=== PATIENT | male | born 1950 | race Hispanic/Latino ===

== ENCOUNTER 2017-02-26 10:45 | Emergency (ER) | payer BC ==
[2017-02-26 11:02] VITALS: BMI 29.1
[2017-02-26 11:03] VITALS: BP 160/84; PULSE 99; RESP 16; TEMP 98.4; O2SAT 94
--- NOTE | 2017-02-26 11:29 | ED PDOC ---
Arrival/HPI - General Chief Complaint: Lower Extremity Problem/Injury Time Seen by Provider: 02/26/17 11:26 Historian: Patient - History of Present Illness Narrative History of Present Illness (Text): 02/26/17 11:35 Mihai Oviedo is a 66 year old male, with a history of diabetes, presents to the emergency department complaining of blister to right heel since yesterday. Denies any trauma or pain to the area but notes that he had previously picked at the skin because there were calluses there. He denies pain, redness, or discharge and states he did not wish to come to the ER but was convinced to by his family. He does not see a interventional physiatrist. Patient also complains of tingling sensation to right upper extremity digits 1-3 for past 3 days. He states he had a similar symptom only in his 4th and 5th digit in the past. States that his blood glucose level is monitored and controlled typically in 130s. Denies fever , chills, headache, dizziness, chest pain, difficulty breathing, or any other complaints at this time. PMD Hany Gallegos. Time/Duration: Other (yesterday ) Activities at Onset: Light Context: Home Past Medical History - Infectious Disease Hx of Infectious Diseases: None - Tetanus Immunization Tetanus Immunization: Unknown - Past Medical History Past Medical History: Unable to Obtain - Cardiac Hx Cardiac Disorders: No Hx Angina: No Hx Cardiac Arrhythmia: No Hx Circulatory Problems: No Hx Congestive Heart Failure: No Hx Heart Murmur: No Hx Heart Transplant: No Hx Hypertension: No Hx Internal Defibrillator: No Hx Mitral Valve Prolapse: No Hx Pacemaker: No Hx Peripheral Vascular Disease: No - Pulmonary Hx Respiratory Disorders: No Hx Asthma: No Hx Bronchitis: No Hx Chronic Obstructive Pulmonary Disease (COPD): No Hx Emphysema: No Hx Pneumonia: No Hx Respiratory Aspiration: No Hx Respiratory Tract Infection: No Hx Sleep Apnea: No Hx Tuberculosis: No - Neurological Hx Neurological Disorder: No Hx Alzheimer's Disease: No HX Cerebrovascular Accident: No Hx Dementia: No Hx Dizziness: No Hx Meningitis: No Hx Migraine: No Hx Parkinson's Disease: No Hx Seizures: No Hx Transient Ischemic Attacks (TIA): No - HEENT Hx HEENT Disorder: No Hx Blind: No Hx Cataracts: No Hx Deafness: No Hx Difficulty Chewing: No Hx Epistaxis: No Hx Glaucoma: No Hx Macular Degeneration: No - Renal Hx Renal Disorder: No Hx Dialysis: No Hx Kidney Stones: No Hx Neurogenic Bladder: No Hx Pyelonephritis: No Hx Renal Cancer: No Hx Renal Failure: No - Endocrine/Metabolic Hx Endocrine Disorders: Yes Hx Adrenal Cancer: No Hx Diabetes Insipidus: No Hx Diabetes Mellitus Type 1: No Hx Diabetes Mellitus Type 2: Yes Hx Hyperthyroidism: No Hx Hypothyroidism: No Hx Systemic Lupus Erythematosus: No - Hematological/Oncological Hx Blood Disorders: No Hx Blood Transfusions: No - Integumentary Hx Dermatological Disorder: No Hx Basal Cell Carcinoma: No Hx Eczema: No Hx Melanoma: No Hx Psoriasis: No Hx Squamous Cell Carcinoma: No - Musculoskeletal/Rheumatological Hx Musculoskeletal Disorders: Yes Hx Arthritis: No Hx Back Pain: Yes Hx Degenerative Joint Disease: No Hx Falls: Yes (slipped on ice 2011) Hx Fractures: No Hx Gout: No Hx Herniated Disk: No Hx Myasthenia Gravis: No Hx Osteoarthritis: No Hx Osteomyelitis: No Hx Osteoporosis: No Hx Rhabdomyolysis: No Hx Spinal Stenosis: No Hx Unsteady Gait: No - Gastrointestinal Hx Gastrointestinal Disorders: Yes Hx Colostomy: No Hx Crohn's Disease: No Hx Diverticulitis: No Hx Gall Bladder Disease: No Hx Gastroesophageal Reflux: No Hx Ileostomy: No Hx Liver Failure: No Hx Pancreatitis: No HX Swallowing Problems: No Other/Comment: Ileus - Genitourinary/Gynecological Hx Genitourinary Disorders: No Hx Hematuria: No Hx Incontinence: No Hx Prostate Problems: No Hx Sexually Transmitted Diseases: No Hx Urinary Tract Infection: No - Psychiatric Hx Psychophysiologic Disorder: No Hx Anxiety: No Hx Bipolar Disorder: No Hx Depression: No Hx Emotional Abuse: No Hx Hallucinations: No Hx Panic Disorder: No Hx Post Traumatic Stress Disorder: No Hx Psychosis: No Hx Physical Abuse: No Hx Schizophrenia: No Hx Sexual Abuse: No Hx Substance Use: No - Past Surgical History Past Surgical History: Unable to Obtain - Surgical History Hx Amputation: No Hx Appendectomy: No Hx Cardiac Catheterization: No Hx Cholecystectomy: No Hx Coronary Stent: No Hx Gastric Bypass Surgery: No Hx Hysterectomy: No Hx Joint Replacement: No Hx Kidney Transplant: No Hx Liver Transplant: No Hx Mastectomy: No Hx Musculoskeletal Surgery: No Hx Open Heart Surgery: No Hx Orthopedic Surgery: No Hx Splenectomy: No Hx Valve Replacement: No Other/Comment: left shoulder arthoscopic sx repair axillary newve 1989, colonoscopy and egs 6 months ago, sx for entrapped nerve to elbow fold b/l arms , 2015 rib sx - Anesthesia Hx Anesthesia Reactions: No Hx Malignant Hyperthermia: No - Suicidal Assessment Feels Threatened In Home Enviroment: No Family/Social History Family/Social History: No Known Family HX Smoking Status: Never Smoked Hx Alcohol Use: No Hx Substance Use: No Hx Substance Use Treatment: No Allergies/Home Meds Allergies/Adverse Reactions: Allergies No Known Allergies Allergy (Verified 02/26/17 11:02) Home Medications: Home Meds Medication Instructions Recorded Confirmed Glyburide,Micronized [Glyburide 0 mg PO DAILY 12/04/15 02/26/17 Micronized] Sitagliptin Phos/Metformin HCl 1 tab PO BID 12/04/15 02/26/17 [Janumet 50-500 mg Tablet] Pioglitazone [Actos] 0 mg PO DAILY 01/25/16 02/26/17 Review of Systems - Physician Review All systems were reviewed & negative as marked: Yes - Review of Systems Constitutional: Normal. absent: Fatigue, Fevers Cardiovascular: Normal. absent: Chest Pain, Palpitations Gastrointestinal: Normal. absent: Abdominal Pain, Diarrhea, Nausea, Vomiting Genitourinary Male: Normal. absent: Dysuria, Frequency Musculoskeletal: Other (blister to heel of right foot. ) Psychiatric: Normal Physical Exam - Physical Exam Narrative Physical Exam (Text): Constitutional: No acute distress. Head: Normocephalic. Atraumatic. Eyes: PERRL. ENT: Moist mucous membranes. Neck: Supple. Cardiovascular: Regular rate. Chest: No tenderness. Respiratory: Clear to auscultation bilaterally. GI: Soft. Nontender. Nondistended. Back: No CVA tenderness. Musculoskeletal: No tenderness or swelling of extremities. Skin: No rash. Neurologic: Alert, no focal deficit. Vital Signs Reviewed: Yes Vital Signs Temp Pulse Resp BP Pulse Ox 02/26/17 11:02 98.4 F 99 H 16 160/84 H 94 L Temperature: Afebrile Blood Pressure: Hypertensive Pulse: Tachycardic Respiratory Rate: Normal Appearance: Positive for: Well-Appearing, Non-Toxic, Comfortable Pain Distress: None Mental Status: Positive for: Alert and Oriented X 3 Medical Decision Making ED Course and Treatment: 02/26/17 11:40 Impression: A 66 year old male who presents to the emergency department complaining of blister to heel of right foot. Progress Notes: Patient is stable for discharge. Denies any pain to area. Advised to follow up with interventional physiatrist and PMD within few days. Advised to present to emergency department for new or worsening symptoms. As there is no infection currently, will forego antibiotics but given instructions to watch for infectious symptoms. Also advised not to pop blister currently but if it does pop, instructions given on care. I encouraged the patient to pursue regular podiatric care given his history of diabetes and neuropathy. Patient states that he will be able to find follow up care through his PMD. - Scribe Statement The provider has reviewed the documentation as recorded by the Horace Peck Provider Attestation: All medical record entries made by the Aaronibe were at my direction and personally dictated by me. I have reviewed the chart and agree that the record accurately reflects my personal performance of the history, physical exam, medical decision making, and the department course for this patient. I have also personally directed, reviewed, and agree with the discharge instructions and disposition. Disposition/Present on Arrival - Present on Arrival Any Indicators Present on Arrival: No History of DVT/PE: No History of Uncontrolled Diabetes: No Urinary Catheter: No History of Decub. Ulcer: No History Surgical Site Infection Following: None - Disposition Have Diagnosis and Disposition been Completed?: Yes Diagnosis: Blister of foot, Neuropathy Disposition: HOME/ ROUTINE Disposition Time: 11:28 Patient Plan: Discharge Condition: STABLE Discharge Instructions (ExitCare): Blister (ED) Referrals: Ranjit Gallegos MD [Primary Care Provider] - Follow up with primary Escobar Gallo DPM [Staff Provider] - Follow up with primary
== END 2017-02-26 11:38 | disposition home or self-care (01) ==
LOC: ED 10:45
DX: S90.821A Blister (nonthermal), right foot, initial encounter (principal); X58.XXXA Exposure to other specified factors, initial encounter; Y92.009 Unspecified place in unspecified non-institutional (private) residence as the place of occurrence of the external cause; G62.9 Polyneuropathy, unspecified; E11.9 Type 2 diabetes mellitus without complications

== ENCOUNTER 2017-03-14 04:43 | Emergency (ER) | payer BC ==
[2017-03-14 04:44] VITALS: BMI 29.1
[2017-03-14 04:54] VITALS: BP 131/65; PULSE 88; RESP 17; TEMP 98.3; O2SAT 99
--- NOTE | 2017-03-14 05:15 | ED PDOC ---
Arrival/HPI - General Chief Complaint: Upper Extremity Problem/Injury Time Seen by Provider: 03/14/17 04:56 - History of Present Illness Narrative History of Present Illness (Text): 03/14/17 05:12 Patient is a 66 y/o M with hx of DM, presenting with 1 week history of R sided arm pain. He is reports R 1st-3rd digit numbness and tingling that radiates up into his R elbow. He cannot identify anything that triggered the pain. He denies new recent repetitive movements. He reports that the shooting pain is constant. Denies trauma. Chart review shows that patient has hx of neuropathic pain and was seen in ED on 02/26/17 for similar wrist complaints but has not followed up. Past Medical History - Infectious Disease Hx of Infectious Diseases: None - Tetanus Immunization Tetanus Immunization: Unknown - Past Medical History Past Medical History: Unable to Obtain - Cardiac Hx Cardiac Disorders: No - Pulmonary Hx Respiratory Disorders: No - Neurological Hx Neurological Disorder: No - HEENT Hx HEENT Disorder: No - Renal Hx Renal Disorder: No - Endocrine/Metabolic Hx Endocrine Disorders: Yes Hx Diabetes Mellitus Type 2: Yes - Hematological/Oncological Hx Blood Disorders: No - Integumentary Hx Dermatological Disorder: No - Musculoskeletal/Rheumatological Hx Musculoskeletal Disorders: Yes Hx Back Pain: Yes Hx Falls: Yes (slipped on ice 2011) - Gastrointestinal Hx Gastrointestinal Disorders: Yes Other/Comment: Ileus - Genitourinary/Gynecological Hx Genitourinary Disorders: No - Psychiatric Hx Psychophysiologic Disorder: No Hx Substance Use: No - Past Surgical History Past Surgical History: Unable to Obtain - Surgical History Other/Comment: left shoulder arthoscopic sx repair axillary newve 1989, colonoscopy and egs 6 months ago, sx for entrapped nerve to elbow fold b/l arms , 2015 rib sx - Anesthesia Hx Anesthesia Reactions: No Hx Malignant Hyperthermia: No - Suicidal Assessment Feels Threatened In Home Enviroment: No Family/Social History Family/Social History: No Known Family HX Smoking Status: Never Smoked Hx Alcohol Use: No Hx Substance Use: No Hx Substance Use Treatment: No Allergies/Home Meds Allergies/Adverse Reactions: Allergies No Known Allergies Allergy (Verified 02/26/17 11:02) Home Medications: Home Meds Medication Instructions Recorded Confirmed Pregabalin [Lyrica] 03/14/17 glyBURIDE [Glyburide] 03/14/17 Review of Systems - Review of Systems Constitutional: absent: Fatigue, Weight Change, Fevers Eyes: absent: Vision Changes Respiratory: absent: SOB, Cough, Sputum, Wheezing Cardiovascular: absent: Chest Pain Gastrointestinal: absent: Abdominal Pain Musculoskeletal: Arthralgias. absent: Neck Pain Skin: absent: Rash Neurological: absent: Headache, Dizziness, Focal Weakness Physical Exam Vital Signs Temp Pulse Resp BP Pulse Ox 03/14/17 04:53 98.3 F 88 17 131/65 99 Temperature: Afebrile Blood Pressure: Normal Pulse: Regular Respiratory Rate: Normal Appearance: Positive for: Well-Appearing, Non-Toxic, Comfortable Pain Distress: None Mental Status: Positive for: Alert and Oriented X 3 - Systems Exam Head: Present: Atraumatic, Normocephalic Pupils: Present: PERRL Extroacular Muscles: Present: EOMI Conjunctiva: Present: Normal Mouth: Present: Moist Mucous Membranes Neck: Present: Normal Range of Motion Respiratory/Chest: Present: Clear to Auscultation, Good Air Exchange. No: Respiratory Distress, Accessory Muscle Use Cardiovascular: Present: Regular Rate and Rhythm, Normal S1, S2. No: Murmurs Abdomen: No: Tenderness, Distention, Rebound, Guarding Upper Extremity: Present: Normal ROM, NORMAL PULSES, Neurovascularly Intact, Other (+Phalen's test). No: Tenderness, Swelling, Erythema Medical Decision Making ED Course and Treatment: 03/14/17 05:15 Presentation seems consistent with carpal tunnel vs diabetic nerve pain. No indication for imaging. Given wrist splint and antiinflammatory medication. Instructed to follow-up with PMD. - Medication Orders Current Medication Orders: Discontinued Medications Ibuprofen (Motrin Tab) 600 mg PO STAT STA Stop: 03/14/17 05:07 Last Admin: 03/14/17 05:22 Dose: 600 mg Ibuprofen (Motrin Tab) Confirm Administered Dose 600 mg .ROUTE .STK-MED ONE Stop: 03/14/17 05:14 Last Admin: 03/14/17 05:21 Dose: Disposition/Present on Arrival - Present on Arrival Any Indicators Present on Arrival: No History of DVT/PE: No History of Uncontrolled Diabetes: No Urinary Catheter: No History of Decub. Ulcer: No History Surgical Site Infection Following: None - Disposition Have Diagnosis and Disposition been Completed?: Yes Diagnosis: Carpal tunnel syndrome of right wrist Disposition: HOME/ ROUTINE Disposition Time: 05:19 Patient Plan: Discharge Condition: GOOD Discharge Instructions (ExitCare): Carpal Tunnel Syndrome (ED), Paresthesia (ED ) Additional Instructions: Follow up with your PMD within 2 days for further evaluation of your wrist pain concerning for diabetic nerve pain vs carpal tunnel. Wear wrist brace. Take anti-inflammatory medication such as motrin. Return to ED if condition worsens. Prescriptions: Naproxen 500 mg PO BID PRN #20 tab PRN Reason: Pain, Mild (1-3)
== END 2017-03-14 05:32 | disposition home or self-care (01) ==
LOC: ED 04:43
DX: G56.01 Carpal tunnel syndrome, right upper limb (principal)

== ENCOUNTER 2017-05-04 09:45 | Inpatient (IN) | payer BC, MEDICARE ==
[2017-05-04 10:31] LABS: VENOUS BLOOD GAS PO2 32 mm/Hg (30-55); VENOUS BLOOD PH 7.37 (7.32-7.43)
[2017-05-04 10:36] LABS: BASO # 0.01 K/mm3 (0.0-2.0); BASO % 0.1 % (0.0-3.0); EOS # 0.2 (0.0-0.7); EOS % 1.5 % (1.5-5.0); GRAN # 8.59 (1.4-6.5); GRAN % 70.3 % (50.0-68.0); HEMOGLOBIN 12.6 gm/dL (14.0-18.0); LYMPH # 2.5 (1.2-3.4); LYMPH % 20.6 % (22.0-35.0); MEAN CELL VOLUME 85.2 fL (80.0-105.0); MEAN CORPUSCULAR HGB CONC 35.2 g/dl (31.0-37.0); MONO # 0.9 (0.1-0.6); MONO % 7.5 % (1.0-6.0); PLATELET COUNT 175 10^3/uL (120.0-450.0); RED CELL DISTRIBUTION WIDTH 14.5 % (11.5-14.5); WHITE BLOOD COUNT 12.2 10^3/ul (4.5-11.0)
[2017-05-04 10:42] LABS: ALB/GLOB RATIO 1.4 (1.1-1.8); ALBUMIN 4.1 g/dL (3.0-4.8); ALT/SGPT 86 U/L (7-56); AST/SGOT 411 U/L (15-59); BLOOD UREA NITROGEN 28 mg/dL (7-21); CALCIUM 9.1 mg/dL (8.4-10.5); GFR AFRICAN-AMERICAN > 60; GFR NON-AFRICAN AMERICAN 55
[2017-05-04 10:43] LABS: INR 1.06 (0.93-1.08); PARTIAL THROMBOPLASTIN TIME 33.3 Seconds (23.7-30.8); PROTHROMBIN TIME 11.4 Seconds (9.9-11.8)
[2017-05-04] MEDS: Sodium Chloride 0.9% 1,000 ML IV SCH (10:49)
[2017-05-04 10:52] LABS: TROPONIN I < 0.01 ng/mL
--- NOTE | 2017-05-04 11:00 | CT ---
PROCEDURE: CT HEAD WITHOUT CONTRAST. HISTORY: ams COMPARISON: None available. TECHNIQUE: Axial computed tomography images were obtained through the head/brain without intravenous contrast. Radiation dose: Total exam DLP = 01/17/2017 mGy-cm. This CT exam was performed using one or more of the following dose reduction techniques: Automated exposure control, adjustment of the mA and/or kV according to patient size, and/or use of iterative reconstruction technique. FINDINGS: HEMORRHAGE: No intracranial hemorrhage. BRAIN: No mass effect or edema. Minimal diffuse atrophy consistent with age. No evidence of acute infarct. VENTRICLES: Unremarkable. No hydrocephalus. CALVARIUM: Unremarkable. PARANASAL SINUSES: Unremarkable as visualized. No significant inflammatory changes. MASTOID AIR CELLS: Unremarkable as visualized. No inflammatory changes. OTHER FINDINGS: None. IMPRESSION: No intracranial mass, hemorrhage or evidence of acute infarct.
[2017-05-04] MEDS ORDERED: cefTRIAXone 1 gm 100 ML IVPB STA (11:11)
[2017-05-04] MEDS ORDERED: cefTRIAXone 1 gm 1 GM/100 ML BAG IVPB STA (11:16)
--- NOTE | 2017-05-04 11:31 | RAD ---
HISTORY: weakness COMPARISON: 05/13/2016 FINDINGS: LUNGS: No infiltrate. Minimal linear scar/atelectasis lateral left lung base. PLEURA: No significant pleural effusion identified, no pneumothorax apparent. CARDIOVASCULAR: Normal. OSSEOUS STRUCTURES: No significant abnormalities. VISUALIZED UPPER ABDOMEN: Normal. OTHER FINDINGS: None. IMPRESSION: No active disease.
[2017-05-04] MEDS ORDERED: Sodium Chloride 0.9% 1,000 ML IV STA (11:44)
[2017-05-04 11:51] LABS: CK MB% 0.3 % (2.5-3.0); CK-MB 54.4 ng/mL (0.0-3.6)
--- NOTE | 2017-05-04 12:23 | CT ---
PROCEDURE: CT Abdomen and Pelvis without intravenous contrast HISTORY: buttock cellulitis ? abscess COMPARISON: 05/13/2016 TECHNIQUE: Without contrast.. Contrast Dose: 0 Radiation dose: Total exam DLP = 1195.17 mGy-cm. This CT exam was performed using one or more of the following dose reduction techniques: Automated exposure control, adjustment of the mA and/or kV according to patient size, and/or use of iterative reconstruction technique. FINDINGS: LOWER THORAX: Bilateral gynecomastia. Coronary arterial calcification. LIVER: Unremarkable. No gross lesion or ductal dilatation. GALLBLADDER AND BILE DUCTS: Unremarkable. PANCREAS: Unremarkable. No gross lesion or ductal dilatation. SPLEEN: Unremarkable. ADRENALS: Unremarkable. No mass. KIDNEYS AND URETERS: Unremarkable. No hydronephrosis. No solid mass. VASCULATURE: Unremarkable. No aortic aneurysm. BOWEL: Diverticulosis of the descending and sigmoid colon. No evidence of diverticulitis. No bowel obstruction. No other abnormal bowel loops are identified. APPENDIX: Unremarkable. Normal appendix. PERITONEUM: Unremarkable. No free fluid. No free air. LYMPH NODES: Unremarkable. No enlarged lymph nodes. BLADDER: Unremarkable. REPRODUCTIVE: Unremarkable prostate BONES: No acute fracture. OTHER FINDINGS: There is stranding of the subcutaneous fat in the left gluteal region with mild overlying skin thickening. Findings are consistent with cellulitis. No evidence of abscess. No abnormality of the gluteal musculature. IMPRESSION: Findings consistent with left gluteal cellulitis. No evidence of abscess. Additional minor findings as above.
--- NOTE | 2017-05-04 13:27 | CP.PCM.CON ---
History of Present Illness - History of Present Illness History of Present Illness: General Surgery Consult- Dr. Azevedo 67M with history of multiple falls presents to the ED with increasing pain around left gluteus. Pt has been having pain for 3 days and has been getting progressively worse. Pt claims he fell forward. No BM in 4 days, but has noticed blood from abrasions. Denies F/C, NOVAK/CP/SOB, N/V/D. no BPR ALL: NKDA PMH: Diabetes Mellitus PSH: multiple orthopaedic surgeries. b/L UE nerve entrapment releases SocialHx: EtOH Review of Systems - Review of Systems All systems: reviewed and no additional remarkable complaints except Review of Systems: per HPI Past Patient History - Infectious Disease Hx of Infectious Diseases: None - Tetanus Immunizations Tetanus Immunization: Unknown - Past Medical History & Family History Past Medical History?: Yes - Past Social History Smoking Status: Never Smoked - CARDIAC Hx Cardiac Disorders: No - PULMONARY Hx Respiratory Disorders: No - NEUROLOGICAL Hx Neurological Disorder: No - HEENT Hx HEENT Problems: No - RENAL Hx Chronic Kidney Disease: No - ENDOCRINE/METABOLIC Hx Endocrine Disorders: Yes Hx Diabetes Mellitus Type 2: Yes - HEMATOLOGICAL/ONCOLOGICAL Hx Blood Disorders: No - INTEGUMENTARY Hx Dermatological Problems: No - MUSCULOSKELETAL/RHEUMATOLOGICAL Hx Musculoskeletal Disorders: Yes Hx Back Pain: Yes Hx Falls: Yes (slipped on ice 2011) - GASTROINTESTINAL Hx Gastrointestinal Disorders: Yes Other/Comment: Ileus - GENITOURINARY/GYNECOLOGICAL Hx Genitourinary Disorders: No - PSYCHIATRIC Hx Psychophysiologic Disorder: No Hx Substance Use: No - SURGICAL HISTORY Other/Comment: left shoulder arthoscopic sx repair axillary newve 1989, colonoscopy and egs 6 months ago, sx for entrapped nerve to elbow fold b/l arms , 2015 rib sx - ANESTHESIA Hx Anesthesia: Yes Hx Anesthesia Reactions: No Hx Malignant Hyperthermia: No Meds Allergies/Adverse Reactions: Allergies Allergy/AdvReac Type Severity Reaction Status Date / Time No Known Allergies Allergy Verified 02/26/17 11:02 - Medications Medications: Current Medications Glycerin (Glycerin Adult Suppository) 1 sup RC ONCE ONE Stop: 05/04/17 13:11 Sodium Chloride (Sodium Chloride 0.9%) 1,000 mls @ 100 mls/hr IV .Q10H DEEPAK Last Admin: 05/04/17 10:49 Dose: 100 mls/hr Potassium Chloride (Potassium Chloride 10 Meq/100 Ml) 10 meq in 100 mls @ 100 mls/hr IVPB Q2H DEEPAK Stop: 05/04/17 14:14 Last Admin: 05/04/17 12:16 Dose: 100 mls/hr Physical Exam - Constitutional Appears: No Acute Distress - Eye Exam Eye Exam: EOMI Pupil Exam: PERRL - ENT Exam ENT Exam: Mucous Membranes Moist - Neck Exam Neck exam: Positive for: Normal Inspection - Respiratory Exam Respiratory Exam: Clear to Auscultation Bilateral, NORMAL BREATHING PATTERN. absent: Accessory Muscle Use, Rales, Wheezes, Stridor - Cardiovascular Exam Cardiovascular Exam: REGULAR RHYTHM, +S1, +S2 - GI/Abdominal Exam GI & Abdominal Exam: Distended, Normal Bowel Sounds, Soft. absent: Hernia - Rectal Exam Rectal Exam: Fecal Impaction. absent: Hemorrhoids Additional comments: Left glut ecchymosis with abrasions extending from outer edge towards the anus not involving the anus towards the right glut. Non-fluctuant. Indurated - Back Exam Additional comments: abrasions in lumbar region - Neurological Exam Neurological exam: Alert, Altered, Oriented x3 - Psychiatric Exam Psychiatric exam: Flat Affect - Skin Additional comments: Abrasion lower lumbar breaking skin. Induration on left glut not involving the anus. dark ecchymosis non-fluctuant and warm to touch Results - Labs Result Diagrams: 05/04/17 16:45 05/04/17 22:10 Assessment & Plan - Assessment and Plan (Free Text) Assessment: 67M s/p fall, left gluteal pain, cellulitis vs abscess Plan: - f/u CT scan results - Abx - medical management - suppository to help initiate BM - No surgical intervention at this time d/w Dr. Roberto Carlos Gibbons PGY1 - Date & Time Date: 05/04/17 Time: 12:45
[2017-05-04 14:24] VITALS: BMI 31.4
[2017-05-04 14:48] LABS: URINE BILIRUBIN NEGATIVE (NEGATIVE); URINE BLOOD LARGE (NEGATIVE); URINE GLUCOSE (UA) NEGATIVE (NEGATIVE); URINE LEUKOCYTE ESTERASE NEGATIVE Leu/uL (NEGATIVE); URINE NITRATE NEGATIVE (NEGATIVE); URINE PROTEIN TRACE mg/dL (<30 mg/dL); URINE UROBILINOGEN 0.2 E.U./dL (<1 E.U./dL)
[2017-05-04 14:54] LABS: URINE AMORPHOUS SEDIMENT SMALL; URINE APPEARANCE SL CLOUDY (CLEAR); URINE COLOR YELLOW (YELLOW); URINE EPITHELIAL CELLS 0 - 2 /hpf (0-5); URINE WBC 0 - 2 /hpf (0-6)
[2017-05-04] MEDS: Meropenem 1g/NS 100mL IVPB 1 GM/100 ML PIGGYBACK IVPB SCH ×2 (15:19→21:24)
--- NOTE | 2017-05-04 15:21 | ED PDOC ---
Arrival/HPI - General Chief Complaint: Weakness/Neurological Deficit Time Seen by Provider: 05/04/17 09:48 Historian: Patient, Spouse, EMS - History of Present Illness Narrative History of Present Illness (Text): 05/04/17 15:17 Patient is a 67 yo male past medical history of "traumatic brain injury", history of hemopneumothorax, history of back pain, presents to ED complaining of pain to his lower back/buttocks for over a week, also states for 1-2 weeks he has had intermittent pain to his fingers in both hands, on and off. Patient states that he has fallen "a few times" over the past several weeks. Reportedly son reported to EMS that he had fallen several days ago "onto his knees" and has possibly has had other falls recently as well. Patient reports fatigue and not ambulating well for several days. He denies headache, he denies chest pain or shortness of breath. Denies bloody urine or stool. Reports that he has had no abdominal pain, no vomiting or diarrhea. Patient states that he has not taken any pain medication for "7-8 days". Time/Duration: Prior to Arrival, 1 week Past Medical History - Infectious Disease Hx of Infectious Diseases: None - Tetanus Immunization Tetanus Immunization: Unknown - Past Medical History Past Medical History: Unable to Obtain - Cardiac Hx Cardiac Disorders: No - Pulmonary Hx Respiratory Disorders: No - Neurological Hx Neurological Disorder: No (TBI from fall in 2011) - HEENT Hx HEENT Disorder: No - Renal Hx Renal Disorder: No - Endocrine/Metabolic Hx Endocrine Disorders: Yes Hx Diabetes Mellitus Type 2: Yes - Hematological/Oncological Hx Blood Disorders: No - Integumentary Hx Dermatological Disorder: No - Musculoskeletal/Rheumatological Hx Falls: Yes (slipped on ice 2011) - Gastrointestinal Hx Gastrointestinal Disorders: Yes Other/Comment: Ileus - Genitourinary/Gynecological Hx Genitourinary Disorders: No - Psychiatric Hx Psychophysiologic Disorder: No Hx Substance Use: No - Past Surgical History Past Surgical History: Unable to Obtain - Surgical History Other/Comment: left shoulder arthoscopic sx repair axillary newve 1989, colonoscopy and egs 6 months ago, sx for entrapped nerve to elbow fold b/l arms , 2015 rib sx - Anesthesia Hx Anesthesia: Yes Hx Anesthesia Reactions: No Hx Malignant Hyperthermia: No - Suicidal Assessment Feels Threatened In Home Enviroment: No Family/Social History Family/Social History: Unknown Family HX Smoking Status: Never Smoked Hx Alcohol Use: No Hx Substance Use: No Hx Substance Use Treatment: No Allergies/Home Meds Allergies/Adverse Reactions: Allergies No Known Allergies Allergy (Verified 02/26/17 11:02) Home Medications: Home Meds Medication Instructions Recorded Confirmed Pregabalin [Lyrica] 03/14/17 glyBURIDE [Glyburide] 1 tab PO DAILY 03/14/17 05/04/17 Review of Systems - Review of Systems Systems not reviewed;Unavailable: Altered Mental Status Constitutional: Fatigue Eyes: absent: Vision Changes, Eye Pain ENT: absent: Hearing Changes Respiratory: absent: SOB, Cough Cardiovascular: Edema. absent: Chest Pain, GIRON Gastrointestinal: Appetite Changes. absent: Abdominal Pain, Stool Changes, Diarrhea, Nausea, Hematochezia, Hematemesis Genitourinary Male: Urinary Output Changes. absent: Dysuria, Frequency, Hematuria Musculoskeletal: Arthralgias, Back Pain, Myalgias. absent: Neck Pain Skin: Skin Lesions. absent: Rash Neurological: Gait Changes. absent: Headache, Dizziness, Speech Changes Endocrine: absent: Diaphoresis, Polydipsia Hemo/Lymphatic: absent: Easy Bleeding Psychiatric: absent: Suicidal Ideation Physical Exam Vital Signs Reviewed: Yes Vital Signs Temp Pulse Resp BP Pulse Ox 05/04/17 15:15 98.5 F 85 13 130/62 96 05/04/17 14:59 82 18 127/65 98 05/04/17 14:19 88 18 132/70 05/04/17 13:25 88 18 132/70 98 05/04/17 09:49 98.2 F 89 18 114/60 98 Temperature: Afebrile Appearance: Positive for: Ill-Appearing Mental Status: Positive for: Lethargic Finger Stick Blood Glucose: 166 - Systems Exam Head: Present: Atraumatic, Normocephalic Pupils: Present: PERRL Extroacular Muscles: Present: EOMI Ears: Present: Normal Canal. No: Erythema Mouth: Present: Dry. No: Drooling, Trismus Pharnyx: No: ERYTHEMA, EXUDATE Nose (Internal): Present: Normal Inspection. No: Purulent Mucous Neck: Present: Normal Range of Motion, Paraspinal Tenderness. No: Meningeal Signs, MIDLINE TENDERNESS, JVD Respiratory/Chest: Present: Clear to Auscultation. No: Respiratory Distress, Accessory Muscle Use Cardiovascular: Present: Regular Rate and Rhythm, Murmurs Abdomen: Present: Distention. No: Tenderness, Peritoneal Signs Rectal: Present: Normal Rectal Tone. No: Gross Blood, Melena, Hemorrhoids Back: Present: Other (there is ecchymosis and erythema with skin breakdwon to bilateral buttocks extending to gluteal fold, no foreign body, no fluctuant masses noted, NO MIDLINE TENDERENSS OR DEFORMITY NOTED) Upper Extremity: No: Cyanosis, Edema Lower Extremity: Present: NORMAL PULSES, Other (abrasions to bilateral knee, full range of motion of hip knee and ankle, mlid leg edema noted). No: Edema Neurological: Present: GCS=15, CN II-XII Intact. No: Speech Normal (slurred speech, slow to respond), Memory Normal Skin: Present: Pale, Other (erythema as noted to buttock) Psychiatric: Present: Alert. No: Normal Concentration, Normal Affect Medical Decision Making ED Course and Treatment: 05/04/17 15:37 Patient's prior records and history reviewed. History subsequently supplemented by who presented to ED after patient's arrival. Patient has had pain to his hands bilaterally on and off for several weeks. On initial exam he does not have midline neck pain or recent trauma. Distal pulses strong. He is noted to be lethargic on initial evaluation, sleeping but arousable with verbal stimuli, where he will answer questions appropriately but in mid response stop speaking and then start speaking again. He states he has "not taken any of my medications for 7 days". States he does take Morphine for pain but has not had pain medication for a week. was out of town but states that when she returned 3 days ago the patient was very sleepy and lethargic, and notes that currently he "this is better than at home". Patient reportedly has been "laying in bed without getting up" for "days" and "isn't eating very much". She suspect that the patient has been falling multiple times and reported to her son that he fell on Friday and "hit his knees" and "told our son he hit his head". Patient states he has to support himself with walking and might have fallen onto his back at some point. Back exam reveals ecchymosis with soft tissue swelling and erythema to buttocks , no discrete abscess noted, no midline bony pain noted. Neuro exam and strength in lower extremities appears intact. Patient was initiated on IV hydration. CPK extremely elevated, suggestive of component of skin breakdown, rhabdomyolysis. Mondragon catheter recommended to measure urine output, patient at this time requests no mondragon, indications and risks reviewed with patient. ID consulted and iv antibitoics initiated for possible buttock cellulitis. Patient's lethargy reportedly has been intermittent as per family. I suspect possible medication side effect or overusage, although patient states he has not been taking any meds for several days. CT head unremarkable, on re-exam he is more alert and interactive. Afebrile. No meningeal signs. No respiratory distress. Hypokalemia noted, no arrhythmias noted. IV kcl ordered and patient monitored. Dr. Irma Gallegos at bedside, and back evaluated by surgery consult Dr. Azevedo. Patient to be admitted to ICU to monitor hydration status, manage rhabdomyolysis , monitor neurologic status, monitor back and arm pain. Currently NV intact, I discussed treatment plan with patient and in length. Patient accepted to ICU by Dr. Steiner, securities compliance examiner. - Lab Interpretations Lab Results: 05/04/17 10:25 05/04/17 10:25 Lab Results 05/04/17 10:25: Sodium 131 L, Chloride 91 L, Potassium 2.7 L* D, Carbon Dioxide 29, Anion Gap 14, BUN 28 H, Creatinine 1.3, Est GFR ( Amer) > 60, Est GFR (Non-Af Amer) 55, Random Glucose 114 H, Calcium 9.1, Total Bilirubin 2.2 H, AST 411 H, ALT 86 H, Alkaline Phosphatase 87, Lactate Dehydrogenase 1037 H, Total Creatine Kinase 23956 H, CK-MB (CK-2) 54.4 H, CK-MB (CK-2) % 0.3 L, Troponin I < 0.01, Total Protein 6.9, Albumin 4.1, Globulin 2.9, Albumin/ Globulin Ratio 1.4 05/04/17 10:25: pO2 32, VBG pH 7.37, VBG pCO2 55.0, VBG HCO3 31.8 H, VBG Total CO2 33.5 H, VBG O2 Sat (Calc) 70.3 H, VBG Base Excess 5.0 H, VBG Potassium 3.0 L , Sodium 131.0 L, Chloride 94.0 L, Glucose 117 H, Lactate 2.0, FiO2 21.0, Venous Blood Potassium 3.0 L 05/04/17 10:25: PT 11.4, INR 1.06, APTT 33.3 H 05/04/17 10:25: WBC 12.2 H, RBC 4.20, Hgb 12.6 L, Hct 35.8 L, MCV 85.2, MCH 30.0 , MCHC 35.2, RDW 14.5, Plt Count 175, MPV 11.0, Gran % 70.3 H, Lymph % (Auto) 20.6 L, Bremer % (Auto) 7.5 H, Eos % (Auto) 1.5, Baso % (Auto) 0.1, Gran # 8.59 H , Lymph # 2.5, Bremer # 0.9 H, Eos # 0.2, Baso # 0.01 - RAD Interpretation Radiology Orders: 05/04/17 10:05 CHEST PORTABLE [RAD] Stat 05/04/17 10:09 HEAD W/O CONTRAST [CT] Stat 05/04/17 11:12 ABD & PELVIS W/O PO OR IV CONT [CT] Stat - EKG Interpretation EKG Interpretation (Text): 05/04/17 15:46 EKG at 09:56 normal sinus rhythm rate of 92 with left axis deviation, nonspecific st changes Interpreted by ED Physician: Yes Type: 12 lead EKG - Medication Orders Current Medication Orders: Sodium Chloride (Sodium Chloride 0.9%) 1,000 mls @ 100 mls/hr IV .Q10H DEEPAK Last Admin: 05/04/17 10:49 Dose: 100 mls/hr Meropenem 1g/NS 100mL IVPB (Meropenem 1g/Ns 100ml Ivpb) 1 gm in 100 mls @ 100 mls/hr IVPB Q8 DEEPAK PRN Reason: Protocol Stop: 05/14/17 14:01 Linezolid (Zyvox) 600 mg PO BID DEEPAK PRN Reason: Protocol Stop: 05/13/17 18:01 Discontinued Medications Glycerin (Glycerin Adult Suppository) 1 sup RC ONCE ONE Stop: 05/04/17 13:11 Last Admin: 05/04/17 13:46 Dose: 1 sup Potassium Chloride (Potassium Chloride 10 Meq/100 Ml) 10 meq in 100 mls @ 100 mls/hr IVPB Q2H DEEPAK Stop: 05/04/17 14:14 Last Admin: 05/04/17 13:45 Dose: 100 mls/hr Ceftriaxone Sodium (Rocephin 1 Gram Ivpb) 1 gm in 100 mls @ 200 mls/hr IVPB ONCE STA PRN Reason: Protocol Stop: 05/04/17 11:45 Last Admin: 05/04/17 11:42 Dose: 200 mls/hr Sodium Chloride (Sodium Chloride 0.9%) 1,000 mls @ 1,000 mls/hr IV .Q1H STA Stop: 05/04/17 12:43 Last Admin: 05/04/17 13:46 Dose: 1,000 mls/hr Disposition/Present on Arrival - Present on Arrival Any Indicators Present on Arrival: Yes History of DVT/PE: No History of Uncontrolled Diabetes: Yes Urinary Catheter: No History of Decub. Ulcer: No History Surgical Site Infection Following: None - Disposition Have Diagnosis and Disposition been Completed?: Yes Diagnosis: Altered mental status, Frequent falls, Cellulitis of buttock, Dehydration, Rhabdomyolysis, Knee abrasion, Hypokalemia, Back pain, Hand pain Disposition: HOSPITALIZED Disposition Time: 12:00 Patient Plan: Admission, ICU Patient Problems: Current Active Problems Problem Status Onset Altered mental status Acute Cellulitis of buttock Acute Dehydration Acute Frequent falls Acute Hypokalemia Acute Knee abrasion Acute Rhabdomyolysis Acute Condition: SERIOUS
[2017-05-04 17:10] LABS: BASO # 0.01 K/mm3 (0.0-2.0); BASO % 0.1 % (0.0-3.0); EOS # 0.3 (0.0-0.7); EOS % 2.7 % (1.5-5.0); GRAN # 6.25 (1.4-6.5); GRAN % 66.9 % (50.0-68.0); HEMOGLOBIN 10.9 gm/dL (14.0-18.0); LYMPH # 2.2 (1.2-3.4); LYMPH % 23.3 % (22.0-35.0); MEAN CELL VOLUME 84.3 fL (80.0-105.0); MEAN CORPUSCULAR HEMOGLOBIN 29.9 pg (25.0-35.0); MEAN CORPUSCULAR HGB CONC 35.5 g/dl (31.0-37.0); MEAN PLATELET VOLUME 10.9 fl (7.0-11.0); MONO # 0.7 (0.1-0.6); PLATELET COUNT 137 10^3/uL (120.0-450.0); RBC 3.64 10^6/uL (3.5-6.1); RED CELL DISTRIBUTION WIDTH 14.3 % (11.5-14.5); VENOUS BLOOD GAS BASE EXCESS 4.8 mmol/L (0.0-2.0); VENOUS BLOOD GAS PO2 54 mm/Hg (30-55); VENOUS BLOOD PH 7.43 (7.32-7.43); WHITE BLOOD COUNT 9.3 10^3/ul (4.5-11.0)
[2017-05-04 17:30] LABS: ALB/GLOB RATIO 1.4 (1.1-1.8); ALBUMIN 3.2 g/dL (3.0-4.8); ALT/SGPT 89 U/L (7-56); AST/SGOT 364 U/L (15-59); BLOOD UREA NITROGEN 20 mg/dL (7-21); GFR AFRICAN-AMERICAN > 60; GFR NON-AFRICAN AMERICAN > 60
[2017-05-04] MEDS ORDERED: Potassium Chloride 20 mEq ER Tab PO ONE (17:49)
[2017-05-04] MEDS ORDERED: Potassium Chloride 20 mEq ER Tab PO STA (18:09)
[2017-05-04 18:15] LABS: MAGNESIUM 1.9 mg/dL (1.7-2.2)
--- NOTE | 2017-05-04 19:31 | CON ---
DATE: 05/04/2017 [employer] PRINCIPAL CONSULTING PHYSICIAN: Dr. Gallegos. CHIEF COMPLAINT: The patient presents with history of fall and stated that he did fall in today and noticed to be lethargic. HISTORY OF PRESENT ILLNESS: The patient is a 67-year-old male with history of traumatic brain injury secondary to fall sometime in the past. The patient also has chronic back pain, arm pain and neck pain as well as abdominal pain. He presents to the ER with history of falling today and states that he has had increasing pain around his left gluteal area. This has been for the last 3 days that he has been getting progressively worse. The patient has no complaints of shortness of breath, no cough, no chest congestion, no fever, chills or nausea or vomiting. Does have some abdominal pain, but no diarrhea. It is noted that the lethargy is there. When left alone he will easily go to sleep and when arose he is appropriate, oriented x3. CT of the head is negative. It is noted that he does have dehydration and his CPK is elevated to 18,000. The patient is also noted to have hypokalemia. PAST MEDICAL HISTORY: As above. ALLERGIES: He has no known allergies. CURRENT MEDICATION: Can be evaluated as per the nurse intake form. SOCIAL HISTORY: Positive for *------* use, no smoking, no drug abuse. FAMILY HISTORY: Noncontributory. REVIEW OF SYSTEMS: CONSTITUTIONAL: All negative. HEENT: All negative. RESPIRATORY: All negative. CARDIOVASCULAR: All negative. GASTROINTESTINAL: All negative. : All negative. MUSCULOSKELETAL: The patient has chronic pain. NEUROPSYCHIATRIC: He has frequent falls. HEMATOLOGICAL: All negative. IMMUNOLOGIC: All negative. ENDOCRINE: All negative. INTEGRITY: The patient noted to have cellulitis of the gluteal area. PHYSICAL EXAMINATION GENERAL: Note that his temperature was 98.5, his pulse is 82, respirations are 12, and BP is 130/62. O2 saturation is 96% on room air. HEENT: Head is atraumatic and normocephalic. Eyes, reactive to light. Ears, nose, and throat seemed to be within normal limits. NECK: Supple. No JVD. No thyroid enlargement. No lymph nodes. HEART: Has regular rate, and rhythm. Normal S1 and S2. LUNGS: Revealed good breath sounds bilaterally. ABDOMEN: Soft. Mild tenderness to palpation. Good bowel sounds. GENITALIA AND RECTAL: Deferred. MUSCULOSKELETAL: No joint deformities. EXTREMITIES: Reveal trace lower extremity. NEUROLOGIC: The patient is moving all extremities, but is fairly lethargic when left alone, but oriented x3. LABORATORY DATA: Reveals a white count of 12.2, hemoglobin of 12.6, hematocrit 35.8 with platelets of 175,000. Venous blood gas reveals a PH of 7.37, PCO2 of 55, PO2 of 32. Sodium is 131, potassium 2.7, chloride 91, CO2 of 29 with a BUN of 28, creatinine of 1.3 and glucose of 131. The patient's CPK is 18,368 and CK-MB is elevated as well. As far as the patient's chest x-ray revels that there is some left-sided atelectasis and has seen CT of the abdomen reveals that there is left gluteal cellulitis and CT of the head reveals no intracranial mass, hemorrhage or evidence of acute infarct. IMPRESSION: This patient has rhabdomyolitis and has gluteal cellulitis. He has some mild dehydration and small amount of atelectasis in the left lung region. The patient has chronic back pain, arm and neck pain secondary to a history of frequent falls. He also has a past history of traumatic brain injury secondary to fall. PLAN: We will continue normal saline and IV, the patient is getting antibiotic of Rocephin and meropenem and we will monitor closely. We are repeating his CPK as well as potassium and the patient potassium has been corrected as per the ER. The patient will be monitoring closely and we will continue to treat aggressively along with the other education consultant of infectious disease, neuro and surgical. Casey Steiner MD
--- NOTE | 2017-05-04 20:45 | CON ---
DATE: 05/04/2017 The patient was seen in the ICU 129, bed 2. The patient actually was initially in the emergency room with the patient's at the bedside. CHIEF COMPLAINT: Buttocks pain and erythema and infection from several days. HISTORY OF PRESENT ILLNESS: This is a 67-year-old male who is known to me from previous admission with history of diabetes mellitus and history of peptic ulcer disease, diverticulitis, and the patient had a fall with rib fracture, resulted in a hemothorax in the past, had a chest tube in, had arthroscopy and endoscopy, had traumatic brain injury, and since his fall, his condition has continued to deteriorate. The patient's , who I spoke to in the emergency room, says the patient has been basically chair ridden and does not get off from the chair and has developed erythema and breakdown of the skin, and now is admitted with feeling weak, somewhat confused. No nausea. No abdominal pain, diarrhea, or constipation. No bright red blood per rectum. No melena. PAST MEDICAL HISTORY: Significant for diabetes mellitus, diverticulitis, herniated disk, peptic ulcer disease, traumatic brain injury, multiple falls in the past, hip fracture, and hemothorax. PAST SURGICAL HISTORY: Significant for chest tube placement and arthroscopy and endoscopy. ALLERGIES: THE PATIENT HAS NO KNOWN ALLERGIES. MEDICATIONS AT HOME: Includes the patient to be on glyburide, Lyrica and naproxen. PHYSICAL EXAMINATION: GENERAL: The patient is in bed and somewhat confused; however, he answers questions appropriately, but slowly, and at times, not accurately as per the patient's . VITAL SIGNS: Temperature is 98.5, heart rate of 89, respiratory rate of 19, it was up 42. The patient's oxygen saturation is 93% and the blood pressure is 114/60. HEENT: Unremarkable. NECK: Supple. LUNGS: Decreased breath sounds. HEART: Normal S1 and S2. ABDOMEN: Soft, nontender. No rebound, no guarding, no mass. EXTREMITIES: Examination of the buttocks reveals severe bilateral erythema with central necrotic area or rectal area, but not involving the rectum. The erythema is more so on the left, however, it is significant erythema and infection. LABORATORY EXAMINATION: Reveals a white count of 12,200, hemoglobin of 12, platelets of 175, and 70% granulocytosis, 20% lymphocytosis. Coagulation noted. Blood gases noted. Chemistries reveal a BUN of 28, creatinine of 1.3; when asked creatinine before this, the patient had a creatinine of 0.9 on 05/15/2016 as documented. The patient does have a potassium of 2.7, glucose of 114, AST of 411, ALT of 86, LDH is over 1000 with a CK of over 18,000. Urinalysis reveals the patient has trace protein, large blood in the urine, 0-2 wbc's, no leukocyte esterase, and there is cloudy *------* pH of 6.0. The patient also had a CAT scan of the abdomen and pelvis, which reveals the patient to have a cellulitis. No evidence of abscess. CAT scan of the head is also done, which reveals the patient to have no acute changes, no evidence of hemorrhage. The patient had a chest x-ray, which is negative. EKG is not available. ASSESSMENT AND PLAN: This is a 67-year-old male *------* with history of multiple falls, history of traumatic brain injury, history of hemothorax requiring a chest tube, history of diverticulitis, peptic ulcer disease, presenting now with leukocytosis and weakness and somewhat confused with dyspnea and significant erythema of the buttocks in the central necrotic area with severe sepsis with left gluteal cellulitis of the buttocks with a necrotic central area with leukocytosis, rhabdomyolysis, and acute kidney injury, creatinine has changed from 0.9 to 1.3. We will start the patient on Zyvox and meropenem pending panculture results, surgical evaluation and clinical response. We will follow closely with you. Long-term prognosis is quite poor for this patient. Case discussed with Dr. Ranjit Gallegos and the patient's at length. We will follow closely. Pollo Woo MD
[2017-05-04 22:33] LABS: BLOOD UREA NITROGEN 17 mg/dL (7-21); GFR AFRICAN-AMERICAN > 60; GFR NON-AFRICAN AMERICAN > 60
--- NOTE | 2017-05-04 22:40 | CARD ---
APPROVED REPORT EKG Measurement Heart [id number] <Conclusion> Poor data quality, interpretation may be adversely affected Normal sinus rhythm Left axis deviation Abnormal ECG
[2017-05-04 22:56] LABS: CK MB% 0.2 % (2.5-3.0)
[2017-05-05] MEDS: Sodium Chloride 0.9% 1,000 ML IV SCH ×3 (04:00→17:07)
[2017-05-05] MEDS ORDERED: Potassium Chloride 20 mEq ER Tab PO ONE (04:04)
[2017-05-05] MEDS: Meropenem 1g/NS 100mL IVPB 1 GM/100 ML PIGGYBACK IVPB SCH ×3 (05:40→21:23)
--- NOTE | 2017-05-05 06:11 | CP.PCM.PN ---
<ThorGiofabian - Last Filed: 05/05/17 12:19> Subjective - Date & Time of Evaluation Date of Evaluation: 05/05/17 Time of Evaluation: 06:08 - Subjective Subjective: Patient differs in whether or not to place Goff. Request Dr. Azevedo's presence. Nurse reports K got low overnight. Objective - Vital Signs/Intake and Output Vital Signs (last 24 hours): Temp Pulse Resp BP Pulse Ox 98 F 77 11 L 108/62 95 05/05/17 04:00 05/05/17 04:40 05/05/17 04:40 05/05/17 04:10 05/05/17 04:40 Intake and Output: 05/04/17 05/05/17 18:59 06:59 Intake Total 2250 Output Total 450 Balance 1800 - Medications Medications: Current Medications Sodium Chloride (Sodium Chloride 0.9%) 1,000 mls @ 100 mls/hr IV .Q10H [facility] Last Admin: 05/05/17 04:00 Dose: 100 mls/hr Meropenem 1g/NS 100mL IVPB (Meropenem 1g/Ns 100ml Ivpb) 1 gm in 100 mls @ 100 mls/hr IVPB Q8 DEEPAK PRN Reason: Protocol Stop: 05/14/17 14:01 Last Admin: 05/05/17 05:40 Dose: 100 mls/hr Potassium Chloride (Potassium Chloride 10 Meq/100 Ml) 10 meq in 100 mls @ 100 mls/hr IVPB Q2H DEEPAK Stop: 05/05/17 07:14 Linezolid (Zyvox) 600 mg PO BID DEEPAK PRN Reason: Protocol Stop: 05/13/17 18:01 Last Admin: 05/04/17 17:03 Dose: 600 mg - Labs Labs: 05/04/17 16:45 05/04/17 22:10 PT 11.4 Seconds (9.9-11.8) 05/04/17 10:25 INR 1.06 (0.93-1.08) 05/04/17 10:25 APTT 33.3 Seconds (23.7-30.8) H 05/04/17 10:25 - Constitutional Appears: Older Than Stated Age, Confused - Head Exam Head Exam: ATRAUMATIC, NORMOCEPHALIC - Eye Exam Eye Exam: Normal appearance - ENT Exam ENT Exam: Mucous Membranes Moist - Respiratory Exam Respiratory Exam: Decreased Breath Sounds, NORMAL BREATHING PATTERN. absent: Accessory Muscle Use - Cardiovascular Exam Cardiovascular Exam: RRR, +S1, +S2 - GI/Abdominal Exam GI & Abdominal Exam: Soft, Hyperactive Bowel Sounds - Rectal Exam Additional comments: Perirectal cellulitis with necrosis/eschar - Neurological Exam Neurological Exam: Abnormal Gait, Awake - Psychiatric Exam Psychiatric exam: Normal Affect, Normal Mood Assessment and Plan - Assessment and Plan (Free Text) Assessment: 67 yo male with recent falls admitted to the ICU for sepsis, rhabdomyolysis, perirectal cellulitis, and some confusion. Plan: Neurologic: CT head showed no acute processes. UDS not collected. Lethargic at the moment, not completely lucid. Pulmonary: CXR showed no acute processes. CV: EKG showed NSR with no significant ST elevation or depression, or T wave inversions. MAP> 65. GI: CT A/P showed no acute intra-abdominal processes, but did show finding consistent with a left gluteal cellulitis, without radiologic evidence of gangrenous necrosis. Renal: For Rhabdomyolysis 2L of IVF administered in ER followed by 100 mls/hr, continue IVF. Monitor UO to ensure at least more than 0.5 ml/kg/hr is produced. Total CK trending down, will continue to monitor. HUONG has resolved with fluids. Repleting K and monitoring other electrolytes via BMP. Serum Magnesium was normal after a prophylactic dose of 1 gm IV. ID: Cellulitis vs gangrenous (gas) necrosis of perirectal region. 1 gram of Ceftriaxone IV administered in ER, now on day 2 of Meropenem and day 1 of Linezolid. Will continue to monitor WBC, fevers.and remain in Surgery: Dr. Azevedo and the surgical team is following patient. I believe they consider conservative treatment for the perirectal region at thuis time. <Antonio Nieves - Last Filed: 05/05/17 18:04> Objective - Vital Signs/Intake and Output Vital Signs (last 24 hours): Temp Pulse Resp BP Pulse Ox 97.5 F L 91 H 19 119/40 L 97 05/05/17 16:00 05/05/17 16:00 05/05/17 16:00 05/05/17 16:00 05/05/17 16:00 Intake and Output: 05/05/17 05/05/17 06:59 18:59 Intake Total 2120 3100 Output Total 600 1000 Balance 1520 2100 - Medications Medications: Current Medications Hydromorphone HCl (Dilaudid) 0.5 mg IVP Q4H PRN PRN Reason: pain more then 6 out of 10 Last Admin: 05/05/17 17:06 Dose: 0.5 mg Meropenem 1g/NS 100mL IVPB (Meropenem 1g/Ns 100ml Ivpb) 1 gm in 100 mls @ 100 mls/hr IVPB Q8 DEEPAK PRN Reason: Protocol Stop: 05/14/17 14:01 Last Admin: 05/05/17 13:03 Dose: 100 mls/hr Sodium Chloride (Sodium Chloride 0.9%) 1,000 mls @ 200 mls/hr IV .Q5H DEEPAK Last Admin: 05/05/17 17:07 Dose: 200 mls/hr Insulin Human Regular (Humulin R Med) 0 units SC ACHS DEEPAK PRN Reason: Protocol Last Admin: 05/05/17 16:54 Dose: Not Given Linezolid (Zyvox) 600 mg PO BID DEEPAK PRN Reason: Protocol Stop: 05/13/17 18:01 Last Admin: 05/05/17 17:06 Dose: 600 mg - Labs Labs: 05/04/17 16:45 05/05/17 05:35 PT 11.4 Seconds (9.9-11.8) 05/04/17 10:25 INR 1.06 (0.93-1.08) 05/04/17 10:25 APTT 33.3 Seconds (23.7-30.8) H 05/04/17 10:25 Attending/Attestation - Attestation I have personally seen and examined this patient.: Yes I have fully participated in the care of the patient.: Yes I have reviewed all pertinent clinical information, including history, physical exam and plan: Yes Notes (Text): 05/05/17 18:02 67 yo male with perirectal cellulitis. On broad spectrum abx, fluid resuscitated. No OR as per surgical service, just wound care. Hemodynamically and respiratory raygoza stable ccm time 40 min
[2017-05-05 07:46] LABS: ALB/GLOB RATIO 1.2 (1.1-1.8); ALT/SGPT 80 U/L (7-56); AST/SGOT 287 U/L (15-59); BLOOD UREA NITROGEN 12 mg/dL (7-21); CALCIUM 7.9 mg/dL (8.4-10.5); GFR AFRICAN-AMERICAN > 60; GFR NON-AFRICAN AMERICAN > 60
[2017-05-05] MEDS: HYDROmorphone 0.5 mg/0.5 ml ISec IVP PRN ×3 (07:47→17:06)
--- NOTE | 2017-05-05 08:42 | CP.PCM.PCO ---
Physician Communication Note - Physician Communication Note Physician Communication Note: Maintain NPO for Possible OR debridement later today
[2017-05-05 09:52] LABS: CK MB% 0.1 % (2.5-3.0); CK-MB 13.4 ng/mL (0.0-3.6)
--- NOTE | 2017-05-05 10:46 | CP.PCM.PN ---
Subjective - Date & Time of Evaluation Date of Evaluation: 05/05/17 Time of Evaluation: 10:00 - Subjective Subjective: Comfortable, not in distress, less pain in the gluteal area, no fevers overnight. Objective - Vital Signs/Intake and Output Vital Signs (last 24 hours): Temp Pulse Resp BP Pulse Ox 97.9 F 85 10 L 100/43 L 97 05/05/17 08:00 05/05/17 09:50 05/05/17 09:50 05/05/17 09:00 05/05/17 09:50 Intake and Output: 05/05/17 05/05/17 06:59 18:59 Intake Total 2120 Output Total 600 Balance 1520 - Medications Medications: Current Medications Hydromorphone HCl (Dilaudid) 0.5 mg IVP Q4H PRN PRN Reason: pain more then 6 out of 10 Last Admin: 05/05/17 07:47 Dose: 0.5 mg Meropenem 1g/NS 100mL IVPB (Meropenem 1g/Ns 100ml Ivpb) 1 gm in 100 mls @ 100 mls/hr IVPB Q8 DEEPAK PRN Reason: Protocol Stop: 05/14/17 14:01 Last Admin: 05/05/17 05:40 Dose: 100 mls/hr Potassium Chloride (Potassium Chloride 20 Meq/100 Ml) 20 meq in 100 mls @ 50 mls/hr IVPB Q2H DEEPAK Stop: 05/05/17 11:44 Last Admin: 05/05/17 09:35 Dose: 50 mls/hr Sodium Chloride (Sodium Chloride 0.9%) 1,000 mls @ 200 mls/hr IV .Q5H [facility] Last Admin: 05/05/17 08:21 Dose: 200 mls/hr Linezolid (Zyvox) 600 mg PO BID DEEPAK PRN Reason: Protocol Stop: 05/13/17 18:01 Last Admin: 05/05/17 09:37 Dose: 600 mg - Labs Labs: 05/04/17 16:45 05/05/17 05:35 PT 11.4 Seconds (9.9-11.8) 05/04/17 10:25 INR 1.06 (0.93-1.08) 05/04/17 10:25 APTT 33.3 Seconds (23.7-30.8) H 05/04/17 10:25 - Constitutional Appears: Non-toxic, No Acute Distress - Head Exam Head Exam: NORMAL INSPECTION - Respiratory Exam Respiratory Exam: Decreased Breath Sounds - Cardiovascular Exam Cardiovascular Exam: +S1, +S2 - GI/Abdominal Exam GI & Abdominal Exam: Soft. absent: Tenderness Assessment and Plan - Assessment and Plan (Free Text) Plan: Assessment Severe sepsis with acute renal failure (improving) with associated rhabdomyolysis in a patient with left gluteal skin and skin structure infection with necrotic central area DM history of diverticulitis S/P hemothorax S/P chest tube placement peptic ulcer disease history of traumatic brain injury history of hip fracture Plan Continue Zyvox and Merrem (day 2) pending further plans of surgery for debridement of the wound on the gluteal area will monitor clinically rhoabmyolysis is still being treated in the ICU
--- NOTE | 2017-05-05 12:58 | PN ---
DATE: 05/05/2017 SUBJECTIVE: The patient is seen and examined at bedside. He is comfortable. He talks full sentences. He is not in respiratory or otherwise distress. However, complains arm pain 5-6/10. PHYSICAL EXAMINATION: VITAL SIGNS: Heart rate 84, respiratory rate 10-15, oxygen saturation 98% on room air, blood pressure 101/37. ENT, HEAD AND NECK: Atraumatic. LUNGS: Clear to auscultation bilaterally. HEART: Regular rate and rhythm. S1 and S2 are normal. ABDOMEN: Soft, nontender and nondistended. MUSCULOSKELETAL: No C/C/E. NEUROLOGIC: The patient moves all extremities spontaneously. SKIN: Moist. PSYCHIATRIC: The patient is alert and oriented x3. LABORATORY DATA: WBC 9.3, hemoglobin 10.9, platelet count 137. Sodium 134, potassium 3.3, chloride 99, carbon dioxide 28, BUN 12, creatinine 0.8, glucose 99. AST 287 down from 364, total bilirubin 1.4 down from 1.8, ALT 80 down from 89. CPK is 13,060 down from 18,000. MEDICATIONS: Dilaudid 0.5 mg IV q. 4 hours p.r.n., Zyvox 600 mg p.o. b.i.d., meropenem, potassium supplementation, normal saline at 200 mL per hour. ASSESSMENT AND PLAN: This is a 67-year-old gentleman who presented with perirectal abscess versus cellulitis. CAT scan, however, did not reveal any abscess or gas in the soft tissue. Patient, however, did have some rhabdomyolysis with CPK 18,000 and acute kidney injury. He was started on normal saline at 100 mL per hour and now increased to 200 mL per hour. Folic acid was replaced. CPK and urine output will be monitored closely. Patient is on broad-spectrum antibiotics. No need for OR as per Dr. Azevedo--> wound care. We will continue to target euvolemia, euglycemia, normothermia and oxygen saturation more than 90%. We will aim at urine output more than 0.5 mL/kg/hr. His pH based on yesterday's lab is 7.43, thus no need for bicarbonate drip at the present time. We will aggressively supplement electrolytes at the present time, potassium is 3.3. We will continue with deep venous thrombosis and gastrointestinal prophylaxis. ccm time 40 min Antonio Nieves MD MTDD
--- NOTE | 2017-05-05 16:21 | HP ---
ADMITTING HISTORY AND PHYSICAL: The patient is a 67-year-old male who presented to the [facility] after suffering multiple falls at home. As per the patient, his legs would simply give out. He denies any palpitations, dizziness, lightheadedness. The patient is known to have a past medical history positive for chronic low back pain. A few years ago he slipped on the ice and suffered multiple rib fractures which were complicated by hemothorax relieved surgically x2. 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 He also has noninsulin-dependent diabetes mellitus. He had been suffering memory loss since his rib fracture and hemothoraces. He was diagnosed with post traumatic brain injury by his neurologist, Dr. Ranjan Mars. When seen in the emergency room, he was accompanied by his . His mental status seems to be changed. He is difficult to follow a conversation, difficult to follow a specific train of thought. He complains of pain all over in his arms, his back, his legs. He is a nonsmoker, never smoked, nonalcoholic drinker. He has no known medical allergies. At the time of admission, he was known to be taking Lyrica, glyburide. He is also taking high doses of opioids in the form of oxycodone and MS Contin. REVIEW OF SYSTEMS: As mentioned above. PHYSICAL EXAMINATION: VITAL SIGNS: His blood pressure is 114/60. Heart rate is 89 beats per minute and he is afebrile. HEENT: Head, eyes, ears, nose, and throat are unremarkable. LUNGS: Clear to auscultation and percussion. HEART: Regular. ABDOMEN: Soft and nontender. EXTREMITIES: Free of cyanosis, clubbing, or edema. There are large areas of cellulitis with a central necrotic area on both buttocks. NEUROLOGICALLY: The patient is slow in thought, but there are no focal neurological signs. LABORATORY STUDIES: Show the white blood cell count to be slightly elevated at 12.3, hemoglobin and hematocrit 12.6 and 35.8 respectively. Platelet count is 175. Sodium is depressed at 131. Potassium is extremely low at 2.7. Blood urea nitrogen is 28, creatinine 1.3. Nonfasting glucose is 140. Total bilirubin is elevated at 2.2. AST is 411. ALT is 86. Total creatine kinase is 18,368. Troponins are negative at 0.01. CAT scan of the brain showed diffuse atrophy. Chest x-ray shows no acute disease. EKG shows regular sinus rhythm with left axis deviation. CAT scan of the abdomen shows cellulitis of left gluteal area. The patient is admitted with diagnoses of sepsis, cellulitis of the buttocks, hypokalemia. He is to be admitted to the intensive care unit. Dr. Woo is requested to consult for the sepsis. Dr. Tyrese Azevedo is requested to provide surgical consult for possible debridement of the necrotic areas on his buttocks. We will be supplementing the potassium. There does not seem to be any problems with rhabdomyolysis at this time; however, we will keep the patient well hydrated and follow his renal functions. Ranjit Gallegos MD
[2017-05-05] MEDS: Insulin Reg-MEDIUM-Coverage SC SCH ×2 (16:54→21:53)
[2017-05-05 19:17] LABS: CK MB% 0.1 % (2.5-3.0); CK-MB 7.6 ng/mL (0.0-3.6)
[2017-05-06] MEDS: Sodium Chloride 0.9% 1,000 ML IV SCH ×3 (03:35→20:00)
[2017-05-06] MEDS: Meropenem 1g/NS 100mL IVPB 1 GM/100 ML PIGGYBACK IVPB SCH ×3 (05:14→21:30)
[2017-05-06 06:47] LABS: BASO # 0.01 K/mm3 (0.0-2.0); BASO % 0.1 % (0.0-3.0); EOS # 0.2 (0.0-0.7); EOS % 2.3 % (1.5-5.0); GRAN # 4.61 (1.4-6.5); GRAN % 67.2 % (50.0-68.0); HEMOGLOBIN 11.4 gm/dL (14.0-18.0); LYMPH # 1.7 (1.2-3.4); LYMPH % 24.7 % (22.0-35.0); MEAN CORPUSCULAR HEMOGLOBIN 30.1 pg (25.0-35.0); MEAN PLATELET VOLUME 10.8 fl (7.0-11.0); MONO # 0.4 (0.1-0.6); MONO % 5.7 % (1.0-6.0); PLATELET COUNT 162 10^3/uL (120.0-450.0); RBC 3.79 10^6/uL (3.5-6.1); RED CELL DISTRIBUTION WIDTH 14.6 % (11.5-14.5); WHITE BLOOD COUNT 6.9 10^3/ul (4.5-11.0)
[2017-05-06 07:02] LABS: ALB/GLOB RATIO 1.3 (1.1-1.8); ALBUMIN 3.2 g/dL (3.0-4.8); ALT/SGPT 80 U/L (7-56); AST/SGOT 243 U/L (15-59); BLOOD UREA NITROGEN 7 mg/dL (7-21); CALCIUM 8.4 mg/dL (8.4-10.5); GFR AFRICAN-AMERICAN > 60; GFR NON-AFRICAN AMERICAN > 60
[2017-05-06 07:45] LABS: CK-MB 4.9 ng/mL (0.0-3.6)
[2017-05-06] MEDS: Insulin Reg-MEDIUM-Coverage SC SCH ×4 (07:58→21:36)
--- NOTE | 2017-05-06 08:25 | CP.PCM.PN ---
Subjective - Date & Time of Evaluation Date of Evaluation: 05/06/17 Time of Evaluation: 08:22 - Subjective Subjective: General Surgery - Dr. Azevedo Pt S&E. ASHLYN. PT denies any complaints, no discomfort in gluteal region at site of excoriations. No F/C, SOB/Cp. Objective - Vital Signs/Intake and Output Vital Signs (last 24 hours): Temp Pulse Resp BP Pulse Ox 98 F 76 17 136/76 98 05/06/17 04:00 05/06/17 06:00 05/06/17 06:00 05/06/17 06:00 05/06/17 06:00 Intake and Output: 05/06/17 05/06/17 06:59 18:59 Intake Total 4200 Output Total 1000 Balance 3200 - Medications Medications: Current Medications Hydromorphone HCl (Dilaudid) 0.5 mg IVP Q4H PRN PRN Reason: pain more then 6 out of 10 Last Admin: 05/05/17 17:06 Dose: 0.5 mg Meropenem 1g/NS 100mL IVPB (Meropenem 1g/Ns 100ml Ivpb) 1 gm in 100 mls @ 100 mls/hr IVPB Q8 DEEPAK PRN Reason: Protocol Stop: 05/14/17 14:01 Last Admin: 05/06/17 05:14 Dose: 100 mls/hr Sodium Chloride (Sodium Chloride 0.9%) 1,000 mls @ 200 mls/hr IV .Q5H DEEPAK Last Admin: 05/06/17 03:35 Dose: 200 mls/hr Insulin Human Regular (Humulin R Med) 0 units SC ACHS DEEPAK PRN Reason: Protocol Last Admin: 05/06/17 07:58 Dose: Not Given Linezolid (Zyvox) 600 mg PO BID DEEPAK PRN Reason: Protocol Stop: 05/13/17 18:01 Last Admin: 05/05/17 17:06 Dose: 600 mg Silver Sulfadiazine (Silvadene 1% 20 Gm) 1 ea TOP BID DEEPAK - Labs Labs: 05/06/17 06:10 05/06/17 06:10 PT 11.4 Seconds (9.9-11.8) 05/04/17 10:25 INR 1.06 (0.93-1.08) 07/23/17 10:25 APTT 33.3 Seconds (23.7-30.8) H 05/04/17 10:25 - Constitutional Appears: No Acute Distress - Head Exam Head Exam: ATRAUMATIC, NORMAL INSPECTION, NORMOCEPHALIC - Eye Exam Eye Exam: Normal appearance - Respiratory Exam Respiratory Exam: NORMAL BREATHING PATTERN. absent: Respiratory Distress - Rectal Exam Additional comments: Perirectal and Gluteal ecchymosis with some skin sloughing and surrounding erythema - Neurological Exam Neurological Exam: Alert, Oriented x3 - Psychiatric Exam Psychiatric exam: Normal Affect, Normal Mood - Skin Skin Exam: Dry, Intact Assessment and Plan - Assessment and Plan (Free Text) Assessment: 67M s/p fall w/ gluteal abrasion Plan: - Apply Silvadene BID to the affected region - No surgical intervention planned DW Dr Roberto Carlos Garcia PGY3
[2017-05-06] MEDS: HYDROmorphone 0.5 mg/0.5 ml ISec IVP PRN ×3 (10:02→18:19)
[2017-05-06] MEDS: Silver Sulfadiazine 1% Cream (20 gm) TOP SCH ×2 (10:03→17:17)
--- NOTE | 2017-05-06 14:32 | PN ---
DATE: 05/06/2017 SUBJECTIVE: The patient is in bed, in no acute distress, nontoxic, no fevers and no chills. PHYSICAL EXAMINATION: VITAL SIGNS: Temperature is 98, blood pressure is 130/70, respiratory rate of 18. HEENT: Unremarkable. NECK: Supple. LUNGS: Decreased breath sounds. HEART: Normal S1 and S2. ABDOMEN: Soft and nontender. LABORATORY EXAMINATION: Reveals white count of 6.9, hemoglobin of 11, platelets of 162. Chemistries reveal BUN of 7, creatinine of 0.8. CPK is noted and is improved. Urinalysis is noted. Microbiology reveals that the patient's blood cultures have no growth. Urine cultures have multiple species consistent with the contamination. Review of orders confirms the patient to be on meropenem and Zyvox and Dr. note is reviewed. ASSESSMENT AND PLAN: He is a 67-year-old male, admitted with severe sepsis, acute renal injury associated with rhabdomyolysis in the patient with left gluteal infection and cellulitis, central neck chronic area a patient who is diabetic, has history of diverticulitis, status post fall, had a hemothorax, had chest tube placement, peptic ulcer disease and had traumatic brain injury and hip fracture history. On day #3 of Zyvox and meropenem, appears to be improving slowly as far and we will follow closely with you. Case discussed with the team in taking care for the patient in the ICU staff. Pollo Woo MD
--- NOTE | 2017-05-06 14:38 | CP.PCM.PN ---
<Thor,Wilber - Last Filed: 05/06/17 14:34> Subjective - Date & Time of Evaluation Date of Evaluation: 05/06/17 Time of Evaluation: 07:15 - Subjective Subjective: Patient is more lucid than yestrday. Complains about room service. Otherwise, no events overnight. Objective - Vital Signs/Intake and Output Vital Signs (last 24 hours): Temp Pulse Resp BP Pulse Ox 98 F 79 14 155/69 H 99 05/06/17 04:00 05/06/17 13:00 05/06/17 13:00 05/06/17 07:00 05/06/17 13:00 Intake and Output: 05/06/17 05/06/17 06:59 18:59 Intake Total 4200 Output Total 1000 Balance 3200 - Medications Medications: Current Medications Hydromorphone HCl (Dilaudid) 0.5 mg IVP Q4H PRN PRN Reason: pain more then 6 out of 10 Last Admin: 05/06/17 10:02 Dose: 0.5 mg Meropenem 1g/NS 100mL IVPB (Meropenem 1g/Ns 100ml Ivpb) 1 gm in 100 mls @ 100 mls/hr IVPB Q8 DEEPAK PRN Reason: Protocol Stop: 05/14/17 14:01 Last Admin: 05/06/17 13:37 Dose: 100 mls/hr Sodium Chloride (Sodium Chloride 0.9%) 1,000 mls @ 200 mls/hr IV .Q5H DEEPAK Last Admin: 05/06/17 10:02 Dose: 200 mls/hr Insulin Human Regular (Humulin R Med) 0 units SC ACHS DEEPAK PRN Reason: Protocol Last Admin: 05/06/17 12:51 Dose: Not Given Linezolid (Zyvox) 600 mg PO BID DEEPAK PRN Reason: Protocol Stop: 05/13/17 18:01 Last Admin: 05/06/17 10:03 Dose: 600 mg Silver Sulfadiazine (Silvadene 1% 20 Gm) 1 ea TOP BID DEEPAK Last Admin: 05/06/17 10:03 Dose: 1 dose - Labs Labs: 05/06/17 06:10 05/06/17 06:10 PT 11.4 Seconds (9.9-11.8) 05/04/17 10:25 INR 1.06 (0.93-1.08) 05/04/17 10:25 APTT 33.3 Seconds (23.7-30.8) H 05/04/17 10:25 - Constitutional Appears: Well, No Acute Distress - Head Exam Head Exam: ATRAUMATIC, NORMOCEPHALIC - Eye Exam Eye Exam: EOMI, Normal appearance - ENT Exam ENT Exam: Mucous Membranes Moist - Respiratory Exam Respiratory Exam: Clear to Ausculation Bilateral, NORMAL BREATHING PATTERN - Cardiovascular Exam Cardiovascular Exam: REGULAR RHYTHM, +S1, +S2 - GI/Abdominal Exam GI & Abdominal Exam: Soft. absent: Distended, Tenderness, Rebound - Rectal Exam Rectal Exam: Deferred - Neurological Exam Neurological Exam: Alert, Normal Gait, Oriented x3 Neuro motor strength exam: Left Upper Extremity: 5, Right Upper Extremity: 5, Left Lower Extremity: 5, Right Lower Extremity: 5 - Psychiatric Exam Psychiatric exam: Normal Affect, Normal Mood Assessment and Plan - Assessment and Plan (Free Text) Plan: Assessment: 67 yo male with recent falls admitted to the ICU for sepsis, rhabdomyolysis, perirectal cellulitis, and some confusion. Plan: Neurologic: CT head showed no acute processes. UDS not collected. Patient has a history of TBI. He is much more lucid today. Pulmonary: CXR showed no acute processes. CV: EKG showed NSR with no significant ST elevation or depression, or T wave inversions. MAP> 65. GI: CT A/P showed no acute intra-abdominal processes, but did show finding consistent with a left gluteal cellulitis, without radiologic evidence of gangrenous necrosis. Renal: For Rhabdomyolysis 2L of IVF administered in ER followed by 100 mls/hr, continue IVF. Monitor UO to ensure at least more than 0.5 ml/kg/hr is produced. Total CK trending down, will continue to monitor. HUONG has resolved with fluids. Repleting K and monitoring other electrolytes via BMP. Serum Magnesium was normal after a prophylactic dose of 1 gm IV. ID: Cellulitis vs gangrenous (gas) necrosis of perirectal region. 1 gram of Ceftriaxone IV administered in ER, now on day 3 of Meropenem and day 2 of Linezolid. Will continue to monitor WBC, fevers.and remain in Surgery: Dr. Azevedo and the surgical team is following patient. I believe they consider conservative treatment for the perirectal region at this time. <Clem SHIN,Ceferino H - Last Filed: 05/06/17 15:09> Objective - Vital Signs/Intake and Output Vital Signs (last 24 hours): Temp Pulse Resp BP Pulse Ox 98 F 79 14 155/69 H 99 05/06/17 04:00 05/06/17 13:00 05/06/17 13:00 05/06/17 07:00 05/06/17 13:00 Intake and Output: 05/06/17 05/06/17 06:59 18:59 Intake Total 4200 Output Total 1000 Balance 3200 - Medications Medications: Current Medications Hydromorphone HCl (Dilaudid) 0.5 mg IVP Q4H PRN PRN Reason: pain more then 6 out of 10 Last Admin: 05/06/17 14:39 Dose: 0.5 mg Meropenem 1g/NS 100mL IVPB (Meropenem 1g/Ns 100ml Ivpb) 1 gm in 100 mls @ 100 mls/hr IVPB Q8 DEEPAK PRN Reason: Protocol Stop: 05/14/17 14:01 Last Admin: 05/06/17 13:37 Dose: 100 mls/hr Sodium Chloride (Sodium Chloride 0.9%) 1,000 mls @ 200 mls/hr IV .Q5H DEEPAK Last Admin: 05/06/17 10:02 Dose: 200 mls/hr Insulin Human Regular (Humulin R Med) 0 units SC ACHS DEEPAK PRN Reason: Protocol Last Admin: 05/06/17 12:51 Dose: Not Given Linezolid (Zyvox) 600 mg PO BID DEEPAK PRN Reason: Protocol Stop: 05/13/17 18:01 Last Admin: 05/06/17 10:03 Dose: 600 mg Silver Sulfadiazine (Silvadene 1% 20 Gm) 1 ea TOP BID DEEPAK Last Admin: 05/06/17 10:03 Dose: 1 dose - Labs Labs: 05/06/17 06:10 05/06/17 06:10 PT 11.4 Seconds (9.9-11.8) 05/04/17 10:25 INR 1.06 (0.93-1.08) 05/04/17 10:25 APTT 33.3 Seconds (23.7-30.8) H 05/04/17 10:25 Attending/Attestation - Attestation I have personally seen and examined this patient.: Yes I have fully participated in the care of the patient.: Yes I have reviewed all pertinent clinical information, including history, physical exam and plan: Yes Notes (Text): 05/06/17 15:07 67 y/o M admitted for SIRS sepsis from Vanita-rectal cellulitis Continue Empiric abx for 10 day course w/ ID following. Surgical team following with dressing changes and if need for any surgical monitoring. Pain management. Pt/OT Diet resumed. Hydrated w/ IV fluids can be on med/surg cc time 35 min
[2017-05-06 18:40] VITALS: RESP 20
--- NOTE | 2017-05-06 23:59 | CP.PCM.PN ---
Subjective - Date & Time of Evaluation Date of Evaluation: 05/06/17 Time of Evaluation: 23:58 - Subjective Subjective: Draft diarrhoea x 6. patient states he had coffee color stool. rx, imodium 4 mg x 1. Stool guiac Objective - Vital Signs/Intake and Output Vital Signs (last 24 hours): Temp Pulse Resp BP Pulse Ox 98 F 78 20 147/72 97 05/06/17 18:40 05/06/17 18:40 05/06/17 18:40 05/06/17 18:40 05/06/17 18:40 Intake and Output: 05/06/17 05/07/17 18:59 06:59 Intake Total 480 Balance 480 - Medications Medications: Current Medications Hydromorphone HCl (Dilaudid) 0.5 mg IVP Q4H PRN PRN Reason: pain more then 6 out of 10 Last Admin: 05/06/17 18:19 Dose: 0.5 mg Meropenem 1g/NS 100mL IVPB (Meropenem 1g/Ns 100ml Ivpb) 1 gm in 100 mls @ 100 mls/hr IVPB Q8 DEEPAK PRN Reason: Protocol Stop: 05/14/17 14:01 Last Admin: 05/06/17 21:30 Dose: 100 mls/hr Sodium Chloride (Sodium Chloride 0.9%) 1,000 mls @ 200 mls/hr IV .Q5H DEEPAK Last Admin: 05/06/17 10:02 Dose: 200 mls/hr Insulin Human Regular (Humulin R Med) 0 units SC ACHS DEEPAK PRN Reason: Protocol Last Admin: 05/06/17 21:36 Dose: Not Given Linezolid (Zyvox) 600 mg PO BID DEEPAK PRN Reason: Protocol Stop: 05/13/17 18:01 Last Admin: 05/06/17 17:18 Dose: 600 mg Silver Sulfadiazine (Silvadene 1% 20 Gm) 1 ea TOP BID DEEPAK Last Admin: 05/06/17 17:17 Dose: 1 dose - Labs Labs: 05/06/17 06:10 05/06/17 06:10 PT 11.4 Seconds (9.9-11.8) 05/04/17 10:25 INR 1.06 (0.93-1.08) 05/04/17 10:25 APTT 33.3 Seconds (23.7-30.8) H 05/04/17 10:25
[2017-05-07] MEDS: Sodium Chloride 0.9% 1,000 ML IV SCH (03:50)
--- NOTE | 2017-05-07 05:24 | PN ---
DATE: 05/06/2017 SUBJECTIVE: The patient was seen this Friday at noon hour in ICU, coronary care, bed 2. Lying in bed. Denying pain, but wanting very much to go home. Unfortunately, I know this patient very well. I was quite surprised to find him in current state, having last seen him several months ago. This morning, he is much more awake, alert, and clear. Today, he is quite confused, slow in mentation, not clear in thought process. PHYSICAL EXAMINATION HEENT: Head and neck are unremarkable. Normocephalic and atraumatic. Conjunctivae pink. LUNGS: Show good aeration right and left. HEART: Not tachycardic. EXTREMITIES: Showed no edema. Buttock shows a large areas of cellulitis with black eschar superiorly. IMPRESSION: 1. Sepsis. 2. Cellulitis of the buttock. 3. Rhabdomyolysis. 4. Altered mental status. 5. History of traumatic brain injury. 6. History of chronic opioid use. PLAN: We will need to talk with physicians who know him for long period of time as to the baseline mental status, although he has changed over the last several years. I know he has been seen by neurology as an outpatient as to whether there was a history of alcohol or other substance abuse. We will follow closely. Continuing antibiotics, IV fluids, medical support. Tyrese Gallegos MD
--- NOTE | 2017-05-07 05:38 | DS ---
I saw the patient in the emergency room and reviewed the notes by the surgical residents and agree with the report. On physical exam, he is a basically healthy man, who has been falling down. Neurologically, he is not intact. Complaining of pain in the sacrum. Sacrum has skin changes but without deep infection that I can see. The CAT scan is reviewed and is unremarkable except for inflammation consistent with cellulitis. There is skin necrosis, unknown depth on both cheeks, buttocks, and also some in the sacral hollow. We will follow with Ki for now without surgical intent. We will also ask for an air mattress. I think this is related pressure and not to infection. Tyrese Azevedo MD
[2017-05-07] MEDS: Meropenem 1g/NS 100mL IVPB 1 GM/100 ML PIGGYBACK IVPB SCH ×3 (05:50→21:56)
[2017-05-07 06:46] LABS: BASO # 0.01 K/mm3 (0.0-2.0); BASO % 0.1 % (0.0-3.0); EOS # 0.1 (0.0-0.7); EOS % 1.3 % (1.5-5.0); GRAN # 6.44 (1.4-6.5); GRAN % 72.3 % (50.0-68.0); HEMOGLOBIN 11.5 gm/dL (14.0-18.0); LYMPH # 1.9 (1.2-3.4); LYMPH % 21.2 % (22.0-35.0); MEAN CORPUSCULAR HEMOGLOBIN 29.8 pg (25.0-35.0); MEAN CORPUSCULAR HGB CONC 35.1 g/dl (31.0-37.0); MEAN PLATELET VOLUME 10.7 fl (7.0-11.0); MONO # 0.5 (0.1-0.6); MONO % 5.1 % (1.0-6.0); PLATELET COUNT 205 10^3/uL (120.0-450.0); RBC 3.86 10^6/uL (3.5-6.1); RED CELL DISTRIBUTION WIDTH 14.4 % (11.5-14.5); WHITE BLOOD COUNT 8.9 10^3/ul (4.5-11.0)
[2017-05-07 07:01] LABS: ALB/GLOB RATIO 1.3 (1.1-1.8); ALBUMIN 3.4 g/dL (3.0-4.8); ALT/SGPT 81 U/L (7-56); AST/SGOT 183 U/L (15-59); BLOOD UREA NITROGEN 4 mg/dL (7-21); CALCIUM 8.5 mg/dL (8.4-10.5); GFR AFRICAN-AMERICAN > 60; GFR NON-AFRICAN AMERICAN > 60
[2017-05-07 07:44] LABS: CK-MB 2.7 ng/mL (0.0-3.6)
[2017-05-07] MEDS: Insulin Reg-MEDIUM-Coverage SC SCH ×3 (07:52→21:53)
[2017-05-07] MEDS: Silver Sulfadiazine 1% Cream (20 gm) TOP SCH (09:13)
[2017-05-07] MEDS: HYDROmorphone 0.5 mg/0.5 ml ISec IVP PRN ×2 (09:31→20:18)
--- NOTE | 2017-05-07 12:50 | CP.PCM.PN ---
Subjective - Date & Time of Evaluation Date of Evaluation: 05/07/17 Time of Evaluation: 12:46 - Subjective Subjective: General Surgery Progress Note: Resident: Saranya Attending: Roberto Carlos HPI: Patient seen and examined at bedside. Doing well w/no complaints at this time. Tolerating diet. +Flatus/+BM. -N/V/D/CP/SOB Objective - Vital Signs/Intake and Output Vital Signs (last 24 hours): Temp Pulse Resp BP Pulse Ox 99.1 F 70 20 136/66 97 05/07/17 08:38 05/07/17 08:38 05/07/17 08:38 05/07/17 08:38 05/07/17 08:38 Intake and Output: 05/07/17 05/07/17 06:59 18:59 Intake Total 2880 240 Output Total 6 Balance 2880 234 - Medications Medications: Current Medications Hydromorphone HCl (Dilaudid) 0.5 mg IVP Q4H PRN PRN Reason: pain more then 6 out of 10 Last Admin: 05/07/17 09:31 Dose: 0.5 mg Meropenem 1g/NS 100mL IVPB (Meropenem 1g/Ns 100ml Ivpb) 1 gm in 100 mls @ 100 mls/hr IVPB Q8 DEEPAK PRN Reason: Protocol Stop: 05/14/17 14:01 Last Admin: 05/07/17 05:50 Dose: 100 mls/hr Sodium Chloride (Sodium Chloride 0.9%) 1,000 mls @ 200 mls/hr IV .Q5H DEEPAK Last Admin: 05/07/17 03:50 Dose: 200 mls/hr Insulin Human Regular (Humulin R Med) 0 units SC ACHS DEEPAK PRN Reason: Protocol Last Admin: 05/07/17 11:46 Dose: Not Given Linezolid (Zyvox) 600 mg PO BID DEEPAK PRN Reason: Protocol Stop: 05/13/17 18:01 Last Admin: 05/07/17 09:13 Dose: 600 mg Silver Sulfadiazine (Silvadene 1% 20 Gm) 1 ea TOP BID DEEPAK Last Admin: 05/07/17 09:13 Dose: 1 dose - Labs Labs: 05/07/17 06:00 05/07/17 06:00 PT 11.4 Seconds (9.9-11.8) 05/04/17 10:25 INR 1.06 (0.93-1.08) 05/04/17 10:25 APTT 33.3 Seconds (23.7-30.8) H 05/04/17 10:25 - Constitutional Appears: Well, No Acute Distress - Eye Exam Eye Exam: EOMI - ENT Exam ENT Exam: Mucous Membranes Moist - Respiratory Exam Respiratory Exam: Clear to Ausculation Bilateral - Cardiovascular Exam Cardiovascular Exam: REGULAR RHYTHM - GI/Abdominal Exam GI & Abdominal Exam: Soft. absent: Distended, Tenderness - Back Exam Additional comments: decubitus ulcer in midline above gluteal fold. Second quarter sized ulceration on right cheek. Assessment and Plan - Assessment and Plan (Free Text) Assessment: 67 y/o WM w/ sacral decub * cleaned and applied silvadene. Dressed w/non stick gauze * change dressing QD Flakito Beaver DO PGY-1
--- NOTE | 2017-05-07 16:48 | PN ---
Mihai Oviedo is seen. The buttocks wounds are delineating now. There is going to be some skin loss probably. Continue the Silvadene for now. Tyrese Azevedo MD
[2017-05-07 20:27] LABS: CK-MB 1.7 ng/mL (0.0-3.6)
--- NOTE | 2017-05-07 21:28 | PN ---
DATE: 05/07/2017 SUBJECTIVE: The patient is in bed, in no acute distress. He was seen earlier this morning in 376, bed 1. PHYSICAL EXAMINATION VITAL SIGNS: Temperature is 98, blood pressure is 150/70, respiratory rate of 20. HEENT: Unremarkable. NECK: Supple. HEART: Normal S1, S2. LUNGS: Decreased breath sounds. ABDOMEN: Soft, nontender. LABORATORY DATA: Reveals a white count of 8.9, hemoglobin 11, platelets of 205. BUN of 4, creatinine of 0.7. Urinalysis is noted. Microbiology is noted. ASSESSMENT AND PLAN: He is a 67-year-old male severe sepsis, acute kidney injury associated with rhabdomyolysis *------* cellulitis in the *------* necrotic area and history of diverticulitis, history of multiple falls and hemothorax requiring a chest tube, peptic ulcer disease, traumatic brain injury, hip fracture, day #4 of Zyvox and meropenem and physical examination reveals that the cellulitis is improving. Microbiology reveals the blood cultures are negative. Urine cultures, multiple organism, consistent with a contamination. Review of order reveals Zyvox and meropenem. We will follow closely with you. Local wound care. Discussed with surgical team. Pollo Woo MD
[2017-05-08] MEDS: Sodium Chloride 0.9% 1,000 ML IV SCH (01:36)
[2017-05-08] MEDS: HYDROmorphone 0.5 mg/0.5 ml ISec IVP PRN (04:43)
[2017-05-08] MEDS: Meropenem 1g/NS 100mL IVPB 1 GM/100 ML PIGGYBACK IVPB SCH (05:15)
[2017-05-08 07:07] LABS: BASO # 0.02 K/mm3 (0.0-2.0); BASO % 0.3 % (0.0-3.0); EOS # 0.2 (0.0-0.7); EOS % 2.1 % (1.5-5.0); GRAN # 5.01 (1.4-6.5); GRAN % 66.1 % (50.0-68.0); HEMOGLOBIN 11.1 gm/dL (14.0-18.0); LYMPH % 26.6 % (22.0-35.0); MEAN CELL VOLUME 85.1 fL (80.0-105.0); MEAN CORPUSCULAR HEMOGLOBIN 29.4 pg (25.0-35.0); MEAN CORPUSCULAR HGB CONC 34.6 g/dl (31.0-37.0); MEAN PLATELET VOLUME 10.6 fl (7.0-11.0); MONO # 0.4 (0.1-0.6); MONO % 4.9 % (1.0-6.0); PLATELET COUNT 220 10^3/uL (120.0-450.0); RBC 3.77 10^6/uL (3.5-6.1); RED CELL DISTRIBUTION WIDTH 14.5 % (11.5-14.5); WHITE BLOOD COUNT 7.6 10^3/ul (4.5-11.0)
[2017-05-08 07:37] LABS: ALB/GLOB RATIO 1.3 (1.1-1.8); ALBUMIN 3.1 g/dL (3.0-4.8); ALT/SGPT 65 U/L (7-56); AST/SGOT 103 U/L (15-59); BLOOD UREA NITROGEN 5 mg/dL (7-21); CALCIUM 7.9 mg/dL (8.4-10.5); GFR AFRICAN-AMERICAN > 60; GFR NON-AFRICAN AMERICAN > 60
[2017-05-08] MEDS: Insulin Reg-MEDIUM-Coverage SC SCH (07:59)
--- NOTE | 2017-05-08 08:57 | CP.PCM.PN ---
Subjective - Date & Time of Evaluation Date of Evaluation: 05/08/17 Time of Evaluation: 08:54 - Subjective Subjective: General Surgery Dr. Azevedo Patient seen and examined this morning at bedside. No acute events overnight. Patient currently has no complaints. States that his pain level has decreased since admission and that he is able to tolerate laying supine now. Tolerating diet. Denies F/C, N/V, SOB or CP. Objective - Vital Signs/Intake and Output Vital Signs (last 24 hours): Temp Pulse Resp BP Pulse Ox 99.2 F 68 20 140/68 96 05/07/17 16:00 05/08/17 00:00 05/08/17 00:00 05/08/17 00:00 05/08/17 00:00 Intake and Output: 05/08/17 05/08/17 06:59 18:59 Intake Total 3535 720 Balance 3535 720 - Medications Medications: Current Medications Hydromorphone HCl (Dilaudid) 0.5 mg IVP Q4H PRN PRN Reason: pain more then 6 out of 10 Last Admin: 05/08/17 04:43 Dose: 0.5 mg Meropenem 1g/NS 100mL IVPB (Meropenem 1g/Ns 100ml Ivpb) 1 gm in 100 mls @ 100 mls/hr IVPB Q8 DEEPAK PRN Reason: Protocol Stop: 05/14/17 14:01 Last Admin: 05/08/17 05:15 Dose: 100 mls/hr Sodium Chloride (Sodium Chloride 0.9%) 1,000 mls @ 200 mls/hr IV .Q5H DEEPAK Last Admin: 05/08/17 01:36 Dose: 200 mls/hr Insulin Human Regular (Humulin R Med) 0 units SC ACHS DEEPAK PRN Reason: Protocol Last Admin: 05/08/17 07:59 Dose: Not Given Linezolid (Zyvox) 600 mg PO BID DEEPAK PRN Reason: Protocol Stop: 05/13/17 18:01 Last Admin: 05/07/17 09:13 Dose: 600 mg Silver Sulfadiazine (Silvadene 1% 20 Gm) 1 ea TOP BID DEEPAK Last Admin: 05/07/17 09:13 Dose: 1 dose - Labs Labs: 05/08/17 06:30 05/08/17 06:30 PT 11.4 Seconds (9.9-11.8) 05/04/17 10:25 INR 1.06 (0.93-1.08) 05/04/17 10:25 APTT 33.3 Seconds (23.7-30.8) H 05/04/17 10:25 - Constitutional Appears: Non-toxic, No Acute Distress - Respiratory Exam Respiratory Exam: NORMAL BREATHING PATTERN. absent: Accessory Muscle Use, Respiratory Distress - Cardiovascular Exam Cardiovascular Exam: REGULAR RHYTHM - Rectal Exam Additional comments: Perianal and Gluteal abrasions improving, margins are well demarcated - Neurological Exam Neurological Exam: Alert, Awake, Oriented x3 - Psychiatric Exam Psychiatric exam: Normal Affect, Normal Mood - Skin Skin Exam: Dry, Warm Assessment and Plan - Assessment and Plan (Free Text) Assessment: 67 year old M s/p fall with perianal and gluteal abrasions. Plan: Apply silvadene BID. Dressed w/non stick gauze Change dressing daily No surgical intervention needed at this time. Will discuss case with Dr. Roberto Carlos Lemon Kim PGY 1
[2017-05-08] MEDS ORDERED: Potassium Chloride 20 mEq ER Tab PO ONE (09:00)
[2017-05-08] MEDS: Silver Sulfadiazine 1% Cream (20 gm) TOP SCH (09:16)
[2017-05-08 09:42] VITALS: BP 140/60; PULSE 64; TEMP 98; O2SAT 98
[2017-05-08 10:01] LABS: CK-MB 1.4 ng/mL (0.0-3.6)
[2017-05-08] MEDS ORDERED: Sodium Chloride 0.9% 1,000 ML IV SCH (10:31)
--- NOTE | 2017-05-08 11:55 | CP.PCM.PN ---
Subjective - Date & Time of Evaluation Date of Evaluation: 05/08/17 Time of Evaluation: 11:51 - Subjective Subjective: pt was admitted for sepsis rhabdomyalysis, and has hypokalemia. wants to sign AMA.PT states his sister has colon cancer and she is having birthday today and he has to go there. Objective - Vital Signs/Intake and Output Vital Signs (last 24 hours): Temp Pulse Resp BP Pulse Ox 98 F 64 20 140/60 98 05/08/17 09:41 05/08/17 09:41 05/08/17 09:41 05/08/17 09:41 05/08/17 09:41 Intake and Output: 05/08/17 05/08/17 06:59 18:59 Intake Total 3535 720 Balance 3535 720 - Medications Medications: Current Medications Meropenem 1g/NS 100mL IVPB (Meropenem 1g/Ns 100ml Ivpb) 1 gm in 100 mls @ 100 mls/hr IVPB Q8 DEEPAK PRN Reason: Protocol Stop: 05/14/17 14:01 Last Admin: 05/08/17 05:15 Dose: 100 mls/hr Sodium Chloride (Sodium Chloride 0.9%) 1,000 mls @ 50 mls/hr IV .Q20H [facility] Insulin Human Regular (Humulin R Med) 0 units SC ACHS DEEPAK PRN Reason: Protocol Last Admin: 05/08/17 07:59 Dose: Not Given Linezolid (Zyvox) 600 mg PO BID DEEPAK PRN Reason: Protocol Stop: 05/13/17 18:01 Last Admin: 05/08/17 09:18 Dose: 600 mg Potassium Chloride (K-Dur 20 Meq Er Tab) 20 meq PO TID DEEPAK Stop: 05/10/17 16:00 Silver Sulfadiazine (Silvadene 1% 20 Gm) 1 ea TOP BID DEEPAK Last Admin: 05/08/17 09:16 Dose: 1 dose - Labs Labs: 05/08/17 06:30 05/08/17 06:30 PT 11.4 Seconds (9.9-11.8) 05/04/17 10:25 INR 1.06 (0.93-1.08) 05/04/17 10:25 APTT 33.3 Seconds (23.7-30.8) H 05/04/17 10:25 - Constitutional Appears: No Acute Distress - Head Exam Head Exam: NORMOCEPHALIC - Eye Exam Eye Exam: Normal appearance Pupil Exam: PERRL - ENT Exam ENT Exam: Mucous Membranes Moist - Neck Exam Neck Exam: Full ROM - Respiratory Exam Respiratory Exam: Clear to Ausculation Bilateral - Cardiovascular Exam Cardiovascular Exam: RRR, +S1, +S2 - Rectal Exam Rectal Exam: Deferred - Extremities Exam Extremities Exam: Full ROM - Neurological Exam Neurological Exam: Alert, Awake, Oriented x3 - Psychiatric Exam Psychiatric exam: Normal Mood - Skin Skin Exam: Dry, Normal Color Assessment and Plan - Assessment and Plan (Free Text) Assessment: AMA. HYPOKALEMIA. sepsis. Plan: risk of arrythmia , fall and explained to pt . PMD is aware.
--- NOTE | 2017-05-08 12:19 | PN ---
SUBJECTIVE: The patient is seen in room 376, bed 1. The patient's status is unchanged. He is awake and alert. He states he wants to be discharged. PHYSICAL EXAMINATION VITAL SIGNS: Temperature is 98, blood pressure is 140/60, respiratory rate of 20. HEENT: Unremarkable. NECK: Supple. LUNGS: Decreased breath sounds. HEART: *------* S1, S2. ABDOMEN: Soft, nontender. LABORATORY DATA: Reveals a white count of 9.6, hemoglobin 11, platelets of 220. Chemistries reveal the patient's potassium is 2.8, glucose is 122, AST is 103, ALT of 65 with *------* and blood cultures have no growth. Urine cultures have multiple specimens consistent with a contamination. ASSESSMENT AND PLAN: A 67-year-old male with severe sepsis, acute kidney injury associated with rhabdomyolysis and cellulitis in the buttocks with necrotic central area with a history of diverticulitis, history of multiple falls and hemothorax requiring a chest tube, peptic ulcer disease, traumatic brain injury, hip fracture, day #5 of Zyvox and meropenem and cellulitis is much improved. Review of order reveals meropenem and Zyvox both active and we will continue the present course. We will follow with you. Case discussed with case management. Dr. Ion Patel's note is reviewed. Pollo Woo MD
--- NOTE | 2017-05-08 12:37 | PN ---
DATE: 05/07/2017 SUBJECTIVE: The patient is a 67-year-old male with a long history of chronic low back pain status post slip and fall on the ice in which he suffered traumatic brain injury, fractured ribs, which were surgically drained. He also has status post shoulder surgery and is a non-insulin dependent diabetic. He was admitted on 05/04/2017 after having multiple falls at home. He was found to be septic with a large cellulitis over both buttocks. He is evaluated by Dr. Woo in the infectious disease specialist who is treating him with intravenous Zyvox and meropenem. He was also evaluated during his hospital stay by Dr. Azevedo, however, surgical debridement of the wound on his buttocks is deferred. CAT shows the cellulitis of the buttocks, but there did not seem to be any penetration into the gluteal muscles, however, on admission his CK was markedly elevated above at 13,000. His liver enzymes showed the SGOT and SGPT to be elevated at 364 and 89 respectively. Since his admission, he is receiving IV fluids. His renal functions have maintained stable. This morning, his renal function; BUN was 4 and creatinine was 0.7. His AST is down to 183, ALT is down to 81, and CK is down to 2585. PHYSICAL EXAMINATION: GENERAL: When seen today, the patient is lying in bed on his thigh. VITAL SIGNS: He is afebrile with blood pressure of 136/66 with a heart rate of 70. ASSESSMENT AND PLAN: He is begging to be discharge to home, promising that if anything should occur he will contact us immediately, however, I explained to the patient that he still requires intravenous antibiotics for this severe cellulitis and we cannot risk it getting worse at this point in time by discontinuing his antibiotics. The patient therefore will remain hospitalized. Case to be discussed with Dr. Woo, the infectious disease specialist and we will continue to follow the patient closely. Of note, the patient's mental status is also altered. The patient had seen the doctor, but the house doctor had been called last night, because the patient complained of 6 ounce of diarrhea when this was mentioned to him during my visit, the patient denied any diarrhea. He had been confused on admission, although his mental status seems to be a bit improved today, it is still not up to his baseline. Ranjit Gallegos MD [facility] # [id number]
[2017-05-08] MEDS ORDERED: Potassium Chloride 20 mEq ER Tab PO SCH (14:00)
--- NOTE | 2017-05-09 02:39 | PN ---
SUBJECTIVE: The patient was seen this morning in room 276, bed 1. He is awake and alert. Mental status is more sharp and clear than when I saw him on Friday in the intensive care. I think he is nearly baseline, telling me that he wants very much to go home today, it is his sister's birthday libertarian tonight, as she is turning 70 and he wants to be there, as she has stage IV cancer. PHYSICAL EXAMINATION: HEENT: Head and neck exam unremarkable. LUNGS: Show good aeration, right and left. HEART: Regular, not tachycardic. EXTREMITIES: Erythema in the buttocks has improved dramatically. There is still some dark eschar. He does not appear septic or toxic. LABORATORY DATA: Show his potassium to be low and having been supplementing. IMPRESSION: Cellulitis of the buttocks with rhabdomyolysis, although the patient does not recall falling or being down for prolonged period of time. He denies any medication, illicit drug, or alcohol abuse. He is just being sore on his gluteal area. It is related to prolonged period of sitting in the chair. PLAN: I explained to the patient the importance of his hospital stay. We will decrease the IV fluids to a low rate, add oral potassium supplements, check his morning labs. Continue regular diet and follow closely. I explained to the patient that there is a 50% probability, though he will be discharged tomorrow, and certainly, he will be ready for discharge to home over the weekend. Later in the day, I received a call that the patient was leaving the hospital against medical advice. He was seen by the hospital physician and informed of the risks involved in a premature discharge including worsening infection and . I asked the nurses on the floor to call the patient's family and notify them of his they would be able to intervene. Later in the day, I discovered that the patient did in fact leave against medical advice. Tyrese Gallegos MD
== END 2017-05-08 12:39 | disposition left against medical advice (07) | DRG 872 ==
LOC: ED 09:45 → ERH 12:34 → CCU 15:13 → 3RSO 05-06 17:24
PROVIDERS: ADMIT Internal Medicine; ATTEND Internal Medicine
DX: A41.9 Sepsis, unspecified organism (principal); N17.9 Acute kidney failure, unspecified; M62.82 Rhabdomyolysis; L03.317 Cellulitis of buttock; J98.11 Atelectasis; E11.9 Type 2 diabetes mellitus without complications; R65.20 Severe sepsis without septic shock; E87.6 Hypokalemia; E86.0 Dehydration; S80.219A Abrasion, unspecified knee, initial encounter; R19.7 Diarrhea, unspecified; W19.XXXA Unspecified fall, initial encounter; R29.6 Repeated falls; Z91.81 History of falling; Z87.11 Personal history of peptic ulcer disease; Z79.84 Long term (current) use of oral hypoglycemic drugs; Z87.820 Personal history of traumatic brain injury; Z79.891 Long term (current) use of opiate analgesic; Y92.9 Unspecified place or not applicable

== ENCOUNTER 2018-03-20 08:28 | Day surgery (SDC) | payer MEDICARE ==
[2018-03-05 11:41] VITALS: BMI 27.8
[2018-03-20] MEDS ORDERED: Propofol 10 mg/ml Inj (20 ML) ONE ×2 (11:14→11:39)
[2018-03-20] MEDS ORDERED: Sodium Chloride 0.9% 1,000 ML IV SCH (12:00)
[2018-03-20 12:13] VITALS: RESP 15
[2018-03-20 12:37] VITALS: BP 157/87; PULSE 61; TEMP 97.5; O2SAT 100
== END 2018-03-20 13:05 | disposition home or self-care (01) ==
LOC: ENDO 08:28
PROVIDERS: ATTEND Internal Medicine Gastroenterology
DX: K25.9 Gastric ulcer, unspecified as acute or chronic, without hemorrhage or perforation (principal); K29.80 Duodenitis without bleeding; K29.50 Unspecified chronic gastritis without bleeding; K21.9 Gastro-esophageal reflux disease without esophagitis; K31.9 Disease of stomach and duodenum, unspecified; R19.7 Diarrhea, unspecified; M51.9 Unspecified thoracic, thoracolumbar and lumbosacral intervertebral disc disorder; Z86.010 Personal history of colon polyps; Z80.0 Family history of malignant neoplasm of digestive organs
CPT/HCPCS: 43239; 82948; 88104; 88305; 88342; J2704; J7030; J7040

== ENCOUNTER 2018-05-11 10:49 | Emergency (ER) | payer MEDICARE ==
[2018-05-11 10:50] VITALS: BMI 27.8
--- NOTE | 2018-05-11 12:21 | ED PDOC ---
Arrival/HPI - General Historian: Patient - History of Present Illness Time/Duration: 1 hour Symptom Onset: Gradual Symptom Course: Improving Activities at Onset: Rest <Josue Eli - Last Filed: 05/11/18 16:02> <Ran Stallings - Last Filed: 05/11/18 17:40> - General Chief Complaint: Weakness/Neurological Deficit Time Seen by Provider: 05/11/18 11:11 - History of Present Illness Narrative History of Present Illness (Text): 05/11/18 12:17 Mr Oviedo is a pleasant 68 year old male with PMHx DM II with neuropathy, gastritis, hemopneumothorax 2/2 multiple rib fractures from fall (2014) who presents to ED with complaint of dry mouth and nose with facial fullness and fatigue since last night. He reports his mouth remains dry despite oral hydration. Patient was scheduled for an appointment with his PCP Dr. Mcintosh this afternoon, but wanted to come to the ED due to the acuity of his symptoms. Pt reported feeling dry mouth and fatigue with no associated fever, chills, cough, or sinus congestion. Pt denies any sick contacts. Pt denies any recent changes in diet or medication. Pt's diabetes is controlled with medication and regular home glucose checks. Pt denies any other symptoms, including nausea, vomiting, headache, dizziness, sore throat, fevers, chills, abdominal pain, cough, blood in stool or changes in stool consistency. 05/11/18 12:21 05/11/18 12:25 05/11/18 12:46 (Josue Eli) Past Medical History - Provider Review Nursing Documentation Reviewed: Yes - Infectious Disease Hx of Infectious Diseases: None - Tetanus Immunization Tetanus Immunization: Unknown - Past Medical History Past Medical History: Unable to Obtain - Cardiac Hx Cardiac Disorders: No - Pulmonary Hx Respiratory Disorders: Yes - Neurological Hx Neurological Disorder: No - HEENT Hx HEENT Disorder: No - Renal Hx Renal Disorder: No - Endocrine/Metabolic Hx Endocrine Disorders: Yes Hx Diabetes Mellitus Type 2: Yes - Hematological/Oncological Hx Blood Disorders: No - Integumentary Hx Dermatological Disorder: No - Musculoskeletal/Rheumatological Hx Musculoskeletal Disorders: Yes Hx Fractures: Yes - Gastrointestinal Hx Gastrointestinal Disorders: Yes Other/Comment: Ileus - Genitourinary/Gynecological Hx Genitourinary Disorders: No - Psychiatric Hx Psychophysiologic Disorder: Yes Hx Anxiety: Yes Hx Substance Use: No - Past Surgical History Past Surgical History: Unable to Obtain - Surgical History Other/Comment: CHEST TUBE - Anesthesia Hx Anesthesia Reactions: No Hx Malignant Hyperthermia: No - Suicidal Assessment Feels Threatened In Home Enviroment: No <Josue Eli - Last Filed: 05/11/18 16:02> Family/Social History - Physician Review Nursing Documentation Reviewed: Yes Family/Social History: No Known Family HX Smoking Status: Never Smoked Hx Alcohol Use: No Hx Substance Use: No Hx Substance Use Treatment: No <Josue Eli - Last Filed: 05/11/18 16:02> Allergies/Home Meds <Josue Eli - Last Filed: 05/11/18 16:02> <Ran Stallings - Last Filed: 05/11/18 17:40> Allergies/Adverse Reactions: Allergies No Known Allergies Allergy (Verified 05/11/18 11:05) Home Medications: Home Meds Medication Instructions Recorded Confirmed Pregabalin [Lyrica] 1 tab PO BID 03/20/18 05/11/18 Sitagliptin Phos/Metformin HCl 1 tab PO BID 03/20/18 05/11/18 [Janumet 50-500 mg Tablet] Review of Systems - Review of Systems Constitutional: Fatigue Eyes: absent: Vision Changes ENT: absent: Sore Throat, Rhinorrhea, Sinus Congestion Respiratory: SOB. absent: Cough, Sputum, Wheezing Cardiovascular: absent: Chest Pain, Calf Pain, GIRON Gastrointestinal: absent: Abdominal Pain, Stool Changes, Constipation, Diarrhea , Nausea, Vomiting, Appetite Changes, Food Intolerance Musculoskeletal: Back Pain Neurological: absent: Headache, Dizziness, Focal Weakness, Speech Changes, Facial Droop Endocrine: absent: Polyuria, Polydipsia Hemo/Lymphatic: absent: Adenopathy <Josue Eli - Last Filed: 05/11/18 16:02> - Physician Review All systems were reviewed & negative as marked: Yes <Ran Stallings - Last Filed: 05/11/18 17:40> Physical Exam Vital Signs Reviewed: Yes Temperature: Afebrile Blood Pressure: Normal Pulse: Regular Respiratory Rate: Normal Appearance: Positive for: Well-Appearing, Non-Toxic, Comfortable Pain Distress: None Mental Status: Positive for: Alert and Oriented X 3 Finger Stick Blood Glucose: 118 - Systems Exam Head: Present: Atraumatic, Normocephalic Pupils: Present: PERRL Extroacular Muscles: Present: EOMI Conjunctiva: Present: Normal Mouth: Present: Dry, Other (+Removable dentures) Pharnyx: Present: Normal. No: ERYTHEMA, EXUDATE, TONSILS ENLARGED, Peritonsilar Swelling, Uvular Deviation Nose (External): Present: Atraumatic Neck: Present: Normal Range of Motion. No: Paraspinal Tenderness, JVD Respiratory/Chest: Present: Clear to Auscultation. No: Accessory Muscle Use, Wheezes, Decreased Breath Sounds Cardiovascular: Present: Regular Rate and Rhythm, Normal S1, S2. No: Murmurs Abdomen: Present: Distention, Normal Bowel Sounds, Other (+reducible ventral hernia). No: Tenderness, Rebound, Guarding Upper Extremity: Present: Normal Inspection. No: Edema Lower Extremity: Present: Normal Inspection. No: Edema Neurological: Present: GCS=15, CN II-XII Intact, Speech Normal, Normal Sensory Function Skin: Present: Warm, Normal Color. No: Rashes, Diaphoretic Psychiatric: Present: Alert, Oriented x 3, Normal Insight <Josue Eli - Last Filed: 05/11/18 16:02> Vital Signs Temp Pulse Resp BP Pulse Ox 05/11/18 12:56 98 F 89 18 145/72 97 05/11/18 11:06 97.9 F 82 16 149/79 95 Medical Decision Making - EKG Interpretation Interpreted by ED Physician: Yes Type: 12 lead EKG Comparison: Similar to previous EKG <Josue Eli - Last Filed: 05/11/18 16:02> <Ran Stallings - Last Filed: 05/11/18 17:40> ED Course and Treatment: 05/11/18 12:40 DDx: Viral URI Hyperglycemia Anemia Discharge Diagnosis: Viral Upper Respiratory Infection Course of Treatment: Patient found to be medically stable, wished to be discharged without IV fluids. Pt was discharged with .9% NS nasal spray prn. ( Josue Eli) 05/11/18 12:52 Elías Oviedo is a 68 year old male who presents to the emergency department complaining of dry mouth, facial fullness, and fatigue. In agreement with resident note, which includes further HPI details. Patient was seen and evaluated with resident, came up with plan and treatment together. He states he just wants something to keep his nose moist and just wanted to make sure everything else was ok. I will Rx him Nasal Hemlock. Patient notes that he has an appointment with Dr. Gallegos later today and will follow up with him today in his office. EKG: Ordered, reviewed, and independently interpreted the EKG. R ate : 76 BPM Rhythm : NSR Interpretation : LAFB /Comparison : No change from EKG on 05/04/17. (Ran Stallings) - EKG Interpretation EKG Interpretation (Text): 05/11/18 12:39 NSR, Left Anterior Fascicular block, no changes from previous ECG (Josue Eli ) <Josue Eli - Last Filed: 05/11/18 16:02> - Scribe Statement The provider has reviewed the documentation as recorded by the Scribe <Ran Stallings - Last Filed: 05/11/18 17:40> - Scribe Statement Stephanie Schmitt Provider Scribe Attestation: All medical record entries made by the Scribe were at my direction and personally dictated by me. I have reviewed the chart and agree that the record accurately reflects my personal performance of the history, physical exam, medical decision making, and the department course for this patient. I have also personally directed, reviewed, and agree with the discharge instructions and disposition. (Ran Stallings) Disposition/Present on Arrival - Present on Arrival Any Indicators Present on Arrival: Yes History of DVT/PE: No History of Uncontrolled Diabetes: Yes Urinary Catheter: No History of Decub. Ulcer: No History Surgical Site Infection Following: None - Disposition Have Diagnosis and Disposition been Completed?: Yes Disposition Time: 12:24 Patient Plan: Discharge <Josue Eli - Last Filed: 05/11/18 16:02> - Present on Arrival Any Indicators Present on Arrival: Yes History of Uncontrolled Diabetes: Yes - Disposition Have Diagnosis and Disposition been Completed?: Yes Patient Plan: Discharge <Ran Stallings - Last Filed: 05/11/18 17:40> - Disposition Diagnosis: Upper respiratory infection, viral Disposition: HOME/ ROUTINE Condition: IMPROVED Discharge Instructions (ExitCare): Viral Upper Respiratory Infection, Adult (DC ) Additional Instructions: ELÍAS OVIEDO, thank you for letting us take care of you today. Your provider was Josue Mcnulty DO, DO and you were treated for Upper Respiratory Infection, Viral. The emergency medical care you received today was directed at your acute symptoms. If you were prescribed any medication, please fill it and take as directed. It may take several days for your symptoms to resolve. Return to the Emergency Department if your symptoms worsen, do not improve, or if you have any other problems. Please contact your doctor or call one of the physicians/clinics you have been referred to that are listed on the Patient Visit Information form that is included in your discharge packet. Bring any paperwork you were given at discharge with you along with any medications you are taking to your follow up visit. Our treatment cannot replace ongoing medical care by a primary care provider outside of the emergency department. Thank you for allowing the [facility] team to be part of your care today. If you had an X-Ray or CT scan: A Radiologist will review the ED reading if any change in treatment is needed we will contact you. If you had a blood, urine, or wound culture: It will take several days for the results, if any change in treatment is needed we will contact you. If you had an STI test: It will take 48 hours for the results. Please call after 1 week if you have not heard back. Prescriptions: Sodium Chloride [Nasal Hemlock] 2 spray NS BID #1 spray Referrals: Ranjit Gallegos MD [Primary Care Provider] - Follow up with primary Forms: [email or web address] ([place]), WORK NOTE
[2018-05-11 12:57] VITALS: BP 145/72; PULSE 89; RESP 18; TEMP 98; O2SAT 97
--- NOTE | 2018-05-11 17:28 | CARD ---
APPROVED REPORT Date of service: 05/11/2018 EKG Measurement Heart [id number] <Conclusion> Normal sinus rhythm Left anterior fascicular block Abnormal ECG
== END 2018-05-11 12:56 | disposition home or self-care (01) ==
LOC: ED 10:49
DX: J06.9 Acute upper respiratory infection, unspecified (principal); E11.40 Type 2 diabetes mellitus with diabetic neuropathy, unspecified

== ENCOUNTER 2018-07-24 15:24 | Emergency (ER) | payer MEDICARE ==
[2018-07-24 15:25] VITALS: BMI 28.5
[2018-07-24 16:24] VITALS: PULSE 84; RESP 18; TEMP 98.4
[2018-07-24] MEDS ORDERED: Oxycodone/Acetaminophen 10/325 mg Tab PO STA (16:31)
[2018-07-24] MEDS ORDERED: Sodium Chloride 0.9% 1,000 ML IV SCH (16:45)
--- NOTE | 2018-07-24 16:46 | ED PDOC ---
Arrival/HPI - General Time Seen by Provider: 07/24/18 15:36 Historian: Patient - History of Present Illness Narrative History of Present Illness (Text): 07/24/18 16:22 A 68 year old male, whose past medical history includes left broken ribs, punctured left lung, and 3 herniated disks, presents to the emergency department complaining of left sided rib pain since 2 days ago. Patient reports he was pulling something form the gutter when he started experiencing symptoms and describes pain as an aching pain. Patient denies taking any medication for pain and denies experiencing any recent falls. Patient denies any fever, chills, chest pain, shortness of breath, nausea, vomiting, diarrhea, urinary symptoms, back pain, neck pain, headache, dizziness, or any other complaints. PMD: Dr. Gallegos Surgeon: Dr. Azevedo Time/Duration: Other (2 days) Symptom Onset: Gradual Symptom Course: Unchanged Quality: Aching Severity Level: 7 Activities at Onset: Light Context: Home Past Medical History - Provider Review Nursing Documentation Reviewed: Yes - Infectious Disease Hx of Infectious Diseases: None - Tetanus Immunization Tetanus Immunization: Unknown - Past Medical History Past Medical History: Unable to Obtain - Cardiac Hx Pacemaker: No - Pulmonary Hx Respiratory Disorders: Yes - Neurological Hx Paralysis: No - HEENT Hx HEENT Disorder: No - Renal Hx Renal Disorder: No - Endocrine/Metabolic Hx Endocrine Disorders: Yes Hx Diabetes Mellitus Type 2: Yes - Hematological/Oncological Hx Blood Transfusions: No Hx Blood Transfusion Reaction: No - Integumentary Hx Dermatological Disorder: No - Musculoskeletal/Rheumatological Hx Musculoskeletal Disorders: Yes - Gastrointestinal Hx Gastrointestinal Disorders: Yes Other/Comment: Ileus - Genitourinary/Gynecological Hx Genitourinary Disorders: No - Psychiatric Hx Emotional Abuse: No Hx Physical Abuse: No Hx Substance Use: No - Past Surgical History Past Surgical History: Unable to Obtain - Surgical History Other/Comment: CHEST TUBE - Anesthesia Hx Anesthesia Reactions: No - Suicidal Assessment Feels Threatened In Home Enviroment: No Family/Social History - Physician Review Nursing Documentation Reviewed: Yes Family/Social History: Unknown Family HX Smoking Status: Never Smoked Hx Alcohol Use: No Hx Substance Use: No Hx Substance Use Treatment: No Allergies/Home Meds Allergies/Adverse Reactions: Allergies No Known Allergies Allergy (Verified 07/24/18 16:23) Home Medications: Home Meds Medication Instructions Recorded Confirmed Pregabalin [Lyrica] 75 mg PO BID 03/20/18 07/24/18 Sitagliptin Phos/Metformin HCl 1 tab PO BID 03/20/18 07/24/18 [Janumet 50-500 mg Tablet] Gabapentin [Neurontin] 200 mg PO BID 06/19/18 07/24/18 Review of Systems - Physician Review All systems were reviewed & negative as marked: Yes - Review of Systems Constitutional: absent: Fevers, Night Sweats Respiratory: absent: SOB Cardiovascular: absent: Chest Pain Gastrointestinal: absent: Diarrhea, Nausea, Vomiting Genitourinary Male: absent: Urinary Output Changes Musculoskeletal: Other (+left sided rib pain). absent: Back Pain, Neck Pain Neurological: absent: Headache, Dizziness Physical Exam Vital Signs Reviewed: Yes Temperature: Afebrile Blood Pressure: Normal Pulse: Regular Respiratory Rate: Normal Appearance: Positive for: Well-Appearing, Non-Toxic, Comfortable Pain Distress: None Mental Status: Positive for: Alert and Oriented X 3 - Systems Exam Head: Present: Atraumatic, Normocephalic Pupils: Present: PERRL Extroacular Muscles: Present: EOMI Conjunctiva: Present: Normal Mouth: Present: Moist Mucous Membranes Neck: Present: Normal Range of Motion Respiratory/Chest: Present: Clear to Auscultation, Good Air Exchange. No: Respiratory Distress, Accessory Muscle Use Cardiovascular: Present: Regular Rate and Rhythm, Normal S1, S2. No: Murmurs Abdomen: Present: Tenderness (+left rib point tenderness, reproducible to palpation), Normal Bowel Sounds. No: Distention, Peritoneal Signs, Rebound, G uarding Back: Present: Normal Inspection Upper Extremity: Present: Normal Inspection. No: Cyanosis, Edema Lower Extremity: Present: Normal Inspection. No: Edema Neurological: Present: GCS=15, CN II-XII Intact, Speech Normal Skin: Present: Warm, Dry, Normal Color. No: Rashes Psychiatric: Present: Alert, Oriented x 3, Normal Insight, Normal Concentration Medical Decision Making ED Course and Treatment: 07/24/18 16:22 Impression: 68 year old male presenting to the emergency department complaining of left sided rib pain. given hx of rib fx will seek out CT. Will also seek out CT angio given hx of hemothorax. Plan: -- Angio Chest PE protocol -- EKG -- Labs -- CBC -- Percocet -- IV fluids -- Reassess and disposition Prior Visits: Notes and results from previous visits were reviewed. Progress Notes: 07/24/18 17:00 Pt notes improvement of pain. in NAD, laying comfortably. CT angio w/ out large clot burden: No clinical implication of PE. No GIRON, leg swelling. Likely overall MSK given Point tenderness on exam with good reproducibility. Will rx PNA. Clear for d/c home. - Scribe Statement The provider has reviewed the documentation as recorded by the Scribe Sole Rodriguez All medical record entries made by the Scribe were at my direction and personally dictated by me. I have reviewed the chart and agree that the record accurately reflects my personal performance of the history, physical exam, medical decision making, and the department course for this patient. I have also personally directed, reviewed, and agree with the discharge instructions and disposition. Disposition/Present on Arrival - Present on Arrival Any Indicators Present on Arrival: No History of DVT/PE: No History of Uncontrolled Diabetes: Yes Urinary Catheter: No History Surgical Site Infection Following: None - Disposition Have Diagnosis and Disposition been Completed?: Yes Diagnosis: Pneumonia Disposition: HOME/ ROUTINE Disposition Time: 19:00 Condition: GOOD Discharge Instructions (ExitCare): Pneumonia in Adults, Community-Acquired Pneumonia, Adult (DC) Prescriptions: Moxifloxacin [Avelox] 400 mg PO DAILY 7 Days #7 tab oxyCODONE/Acetaminophen [Percocet 5/325 mg Tab] 1 ea PO Q8H PRN 3 Days #9 tab PRN Reason: Pain, Moderate (4-7) Referrals: Ranjit Gallegos MD [Family Provider] - Follow up with primary Forms: [employer] ([place]an)
[2018-07-24] MEDS ORDERED: Iohexol 350 MG/100 ML VIAL ONE (17:44)
[2018-07-24 17:52] LABS: HEMOGLOBIN 13.4 g/dL (14.0-18.0); MEAN CELL VOLUME 88.8 fl (80.0-105.0); MEAN CORPUSCULAR HGB CONC 33.8 g/dl (31.0-37.0); RBC 4.46 10^6/uL (3.5-6.1); RED CELL DISTRIBUTION WIDTH 13.5 % (11.5-14.5); WHITE BLOOD COUNT 11.4 10^3/ul (4.5-11.0)
[2018-07-24 17:53] LABS: BASO # 0.02 K/mm3 (0.0-2.0); BASO % 0.2 % (0.0-3.0); EOS # 0.2 (0.0-0.7); EOS % 1.8 % (1.5-5.0); GRAN # 9.48 (1.4-6.5); GRAN % 83.1 % (50.0-68.0); LYMPH # 1.3 (1.2-3.4); MEAN PLATELET VOLUME 11.2 fl (7.0-11.0); MONO # 0.4 (0.1-0.6); MONO % 3.9 % (1.0-6.0)
[2018-07-24 17:54] LABS: ALB/GLOB RATIO 1.4 (1.1-1.8); ALBUMIN 4.4 g/dL (3.0-4.8); ALT/SGPT 26 U/L (7-56); AST/SGOT 26 U/L (17-59); BLOOD UREA NITROGEN 16 mg/dL (7-21); CALCIUM 9.7 mg/dL (8.4-10.5); GFR NON-AFRICAN AMERICAN > 60; LIPASE 42 U/L (23-300)
[2018-07-24 18:05] LABS: TROPONIN I < 0.01 ng/mL
--- NOTE | 2018-07-24 18:57 | CT ---
Date of service: 07/24/2018 PROCEDURE: CT Chest with contrast (Pulmonary Angiogram) HISTORY: cp COMPARISON: CT chest 05/13/2016 TECHNIQUE: Axial computed tomography images were obtained of the chest in the pulmonary arterial phase of enhancement. Coronal and sagittal reformatted images were created and reviewed. Intravenous contrast dose: 100 cc Omnipaque 350 Radiation dose: Total exam DLP = 578.42 mGy-cm. This CT exam was performed using one or more of the following dose reduction techniques: Automated exposure control, adjustment of the mA and/or kV according to patient size, and/or use of iterative reconstruction technique. FINDINGS: PULMONARY ARTERIES: Technically limited. Unable to evaluate segmental/subsegmental pulmonary artery branches. No large central pulmonary embolus identified. AORTA: No acute findings. No thoracic aortic aneurysm. LUNGS: Multifocal patchy right upper lobe pulmonary infiltrate. Possible pneumonia. No consolidation seen elsewhere. Minimal bilateral dependent atelectasis. No pulmonary mass. PLEURAL SPACES: Unremarkable. No effusion or pneumothorax. HEART: Unremarkable. No cardiomegaly. No significant pericardial effusion. LYMPH NODES: No lymphadenopathy. BONES, CHEST WALL: No acute fracture. Incidentally noted mild bilateral gynecomastia. OTHER FINDINGS: Unremarkable. IMPRESSION: Patchy right upper lobe infiltrates. Suspect pneumonia. Technically limited examination. Cannot rule out pulmonary embolism on the basis of this examination. No large central pulmonary embolus identified. No other acute abnormality.
[2018-07-24 19:27] VITALS: BP 143/73; O2SAT 99
--- NOTE | 2018-07-25 08:50 | CARD ---
APPROVED REPORT Date of service: 07/24/2018 EKG Measurement Heart [id number] <Conclusion> Normal sinus rhythm Left axis deviation Cannot rule out Anterior infarct, age undetermined Abnormal ECG
== END 2018-07-24 19:40 | disposition home or self-care (01) ==
LOC: ED 15:24
DX: J18.9 Pneumonia, unspecified organism (principal); E11.9 Type 2 diabetes mellitus without complications
CPT/HCPCS: 71275; 80053; 82948; 83690; 84484; 85025; 93005; 99283; J7030; Q9967

== ENCOUNTER 2018-09-10 12:58 | Emergency (ER) | payer MEDICARE ==
[2018-09-10 13:11] VITALS: BMI 28.7
[2018-09-10 13:13] VITALS: RESP 18
--- NOTE | 2018-09-10 14:08 | ED PDOC ---
Arrival/HPI - General Chief Complaint: Weakness/Neurological Deficit Time Seen by Provider: 09/10/18 13:30 Historian: Patient - History of Present Illness Narrative History of Present Illness (Text): 09/10/18 14:03 68 year old male, with past medical history of DM II with neuropathy, sciatica, gastritis, and hemopneumothorax 2/2 multiple rib fractures from fall (2014), presents to the Emergency department complaining of feeling sick for past 2 weeks. Patient states he has been experiencing shortness of breath, headache, cough, left rib pain and chills, prompting him to present to the ED for medical evaluation. Patient states visiting [place] with his son in July, where he had to walk more than usual requiring more physical exertion. As per patient, symptoms emerged since his return from travel. Patient denies any other associated somatic complaints. Patient denies any fevers, chills, dizziness, chest pain, abdominal pain, nausea, vomiting, diarrhea, back pain, neck pain, or any other complaints. Time/Duration: > week Symptom Onset: Gradual Symptom Course: Unchanged Quality: Aching Activities at Onset: Light Context: Home Past Medical History - Provider Review Nursing Documentation Reviewed: Yes - Infectious Disease Hx of Infectious Diseases: None - Tetanus Immunization Tetanus Immunization: Unknown - Past Medical History Past Medical History: Unable to Obtain - Cardiac Hx Pacemaker: No - Pulmonary Hx Respiratory Disorders: Yes - Neurological Hx Paralysis: No - HEENT Hx HEENT Disorder: No - Renal Hx Renal Disorder: No - Endocrine/Metabolic Hx Endocrine Disorders: Yes Hx Diabetes Mellitus Type 2: Yes - Hematological/Oncological Hx Blood Transfusions: No Hx Blood Transfusion Reaction: No - Integumentary Hx Dermatological Disorder: No - Musculoskeletal/Rheumatological Hx Musculoskeletal Disorders: Yes - Gastrointestinal Hx Gastrointestinal Disorders: Yes Other/Comment: Ileus - Genitourinary/Gynecological Hx Genitourinary Disorders: No - Psychiatric Hx Emotional Abuse: No Hx Physical Abuse: No Hx Substance Use: No - Past Surgical History Past Surgical History: Unable to Obtain - Surgical History Other/Comment: CHEST TUBE - Anesthesia Hx Anesthesia Reactions: No - Suicidal Assessment Feels Threatened In Home Enviroment: No Family/Social History - Physician Review Nursing Documentation Reviewed: Yes Family/Social History: Unknown Family HX Smoking Status: Never Smoked Hx Alcohol Use: No Hx Substance Use: No Hx Substance Use Treatment: No Allergies/Home Meds Allergies/Adverse Reactions: Allergies No Known Allergies Allergy (Verified 07/24/18 16:23) Home Medications: Home Meds Medication Instructions Recorded Confirmed Pregabalin [Lyrica] 75 mg PO BID 03/20/18 07/24/18 Sitagliptin Phos/Metformin HCl 1 tab PO BID 03/20/18 07/24/18 [Janumet 50-500 mg Tablet] Gabapentin [Neurontin] 200 mg PO BID 06/19/18 07/24/18 Review of Systems - Physician Review All systems were reviewed & negative as marked: Yes - Review of Systems Constitutional: absent: Fevers Respiratory: SOB, Cough Cardiovascular: absent: Chest Pain, GIRON Gastrointestinal: absent: Abdominal Pain, Diarrhea, Nausea, Vomiting Genitourinary Male: absent: Dysuria, Urinary Output Changes Musculoskeletal: Other (Left rib pain ). absent: Back Pain, Neck Pain Neurological: Headache. absent: Dizziness Physical Exam Vital Signs Reviewed: Yes Vital Signs Temp Pulse Resp BP Pulse Ox 09/10/18 13:13 98.3 F 95 H 18 152/88 H 96 Temperature: Afebrile Blood Pressure: Normal Pulse: Regular Respiratory Rate: Normal Appearance: Positive for: Well-Appearing, Non-Toxic, Comfortable Pain Distress: None Mental Status: Positive for: Alert and Oriented X 3 Finger Stick Blood Glucose: 270 - Systems Exam Head: Present: Atraumatic, Normocephalic Pupils: Present: PERRL Extroacular Muscles: Present: EOMI Conjunctiva: Present: Normal Neck: Present: Normal Range of Motion Respiratory/Chest: Present: Clear to Auscultation, Good Air Exchange. No: Respiratory Distress, Accessory Muscle Use Cardiovascular: Present: Regular Rate and Rhythm, Normal S1, S2. No: Murmurs Abdomen: No: Tenderness, Distention, Peritoneal Signs Back: Present: Normal Inspection Upper Extremity: Present: Normal Inspection. No: Cyanosis, Edema Lower Extremity: Present: Normal Inspection. No: Edema Neurological: Present: GCS=15, CN II-XII Intact, Speech Normal Skin: Present: Warm, Dry, Normal Color. No: Rashes Psychiatric: Present: Alert, Oriented x 3, Normal Insight, Normal Concentration Medical Decision Making ED Course and Treatment: 09/10/18 14:03 Impression: 68 year old male presents to the Emergency department complaining of feeling sick. Plan: -- EKG -- Labs -- Chest X-ray -- Toradol -- Urinalysis -- Reassess and disposition Prior Visits: Notes and results from previous visits were reviewed. Progress Notes: 09/10/18 15:09 Chest X-ray reviewed by radiologist, shows no active disease. 09/10/18 15:30 EKG: Ordered, reviewed, and independently interpreted the EKG, shows NSR@ 95bpm. Left axis deviation. 09/10/18 20:29 CT Abdomen with IV contrast CLINICAL HISTORY: ABDOMINAL PAIN TECHNIQUE: Axial computed tomography images of the abdomen and pelvis with intravenous contrast. 1177.05 mGy-cm CONTRAST: With; 33OZ OMNI MIX & OMNI 350 150 ml COMPARISON: None provided. FINDINGS: LUNG BASES: There is mild infiltrate at the right lower lung. LIVER: Liver normal in size with evidence of fatty infiltration. GALLBLADDER AND BILE DUCTS: The gallbladder appears within normal limits. No radioopaque gallstones are seen. No biliary ductal dilatation is evident. PANCREAS: Unremarkable. SPLEEN: Unremarkable. ADRENAL GLANDS: Unremarkable. KIDNEYS, URETERS, AND BLADDER: The kidneys appear within normal limits. There is no hydronephrosis or hydroureter. No urinary calculi are seen. Prostate gland moderately enlarged and lobulated in contour indenting the base of bladder. Mild bladder wall thickening. STOMACH AND BOWEL: Unremarkable appearance of the stomach and bowel. No evidence of bowel obstruction. No evidence suggesting enteritis or colitis. Mild diverticular changes sigmoid colon. APPENDIX: No evidence of acute appendicitis on CT examination. PERITONEUM: No free fluid. No free air. LYMPH NODES: No lymphadenopathy is evident. VASCULATURE: No evidence of abdominal aortic aneurysm. BONES: No aggressive appearing osseous lesion. No acute osseous pathology evident. IMPRESSION: Mild infiltrate right lower lung. Fatty infiltration of the liver. Moderately enlarged prostate gland which is lobulated in contour. Bladder wall thickening. Mild diverticular changes sigmoid colon. Clinical correlation advised. - Lab Interpretations Lab Results: Lab Results 09/10/18 13:11: POC Glucose (mg/dL) 270 H - RAD Interpretation Radiology Orders: 09/10/18 14:04 CHEST PORTABLE [RAD] Stat Ear Specialist: Radiologist - EKG Interpretation Interpreted by ED Physician: Yes Type: 12 lead EKG - Medication Orders Current Medication Orders: Ketorolac Tromethamine (Toradol) 30 mg IVP STAT STA Stop: 09/10/18 14:06 - Scribe Statement The provider has reviewed the documentation as recorded by the Scribe Ronan Sears. All medical record entries made by the Scribe were at my direction and per sonally dictated by me. I have reviewed the chart and agree that the record accurately reflects my personal performance of the history, physical exam, medical decision making, and the department course for this patient. I have also personally directed, reviewed, and agree with the discharge instructions and disposition. Disposition/Present on Arrival - Present on Arrival Any Indicators Present on Arrival: No History of DVT/PE: No History of Uncontrolled Diabetes: Yes Urinary Catheter: No History of Decub. Ulcer: No History Surgical Site Infection Following: None - Disposition Have Diagnosis and Disposition been Completed?: Yes Diagnosis: Pneumonia, Enlarged prostate Disposition: HOME/ ROUTINE Disposition Time: 20:51 Condition: GOOD Discharge Instructions (ExitCare): Pneumonia in Adults, Benign Prostatic Hyperplasia (Enlarged Prostate) Additional Instructions: Follow up with medicine clinic and urology clinic with Dr Oropeza. Prescriptions: Azithromycin [Zithromax] 250 mg PO DAILY 4 Days #4 tab Ibuprofen [Motrin Ib] 600 mg PO Q6 5 Days #20 tablet [place] [facility] [place] [facility] [place] - Follow up with primary [facility] [Outside] - Follow up with primary [facility] [place] [Outside] - Follow up with primary Noah Oropeza MD [Staff Provider] - Follow up with primary Forms: [employer] ([place])
--- NOTE | 2018-09-10 14:27 | RAD ---
Date of service: 09/10/2018 HISTORY: chest pain COMPARISON: 06/19/2018 FINDINGS: LUNGS: No active pulmonary disease. PLEURA: No significant pleural effusion identified, no pneumothorax apparent. CARDIOVASCULAR: No aortic atherosclerotic calcification present. Normal cardiac size. No pulmonary vascular congestion. OSSEOUS STRUCTURES: No significant abnormalities. VISUALIZED UPPER ABDOMEN: Normal. OTHER FINDINGS: None. IMPRESSION: No active disease.
[2018-09-10 15:52] LABS: BASO # 0.02 K/mm3 (0.0-2.0); BASO % 0.1 % (0.0-3.0); EOS # 0.2 (0.0-0.7); EOS % 1.4 % (1.5-5.0); GRAN # 12.92 (1.4-6.5); GRAN % 80.6 % (50.0-68.0); LYMPH # 2.1 (1.2-3.4); MEAN CELL VOLUME 88.2 fl (80.0-105.0); MEAN PLATELET VOLUME 10.9 fl (7.0-11.0); MONO # 0.8 (0.1-0.6); MONO % 4.9 % (1.0-6.0); RBC 4.33 10^6/uL (3.5-6.1); RED CELL DISTRIBUTION WIDTH 13.5 % (11.5-14.5)
[2018-09-10 16:00] LABS: ALB/GLOB RATIO 1.4 (1.1-1.8); ALBUMIN 4.5 g/dL (3.0-4.8); ALT/SGPT 22 U/L (7-56); AST/SGOT 24 U/L (17-59); BLOOD UREA NITROGEN 13 mg/dL (7-21); CALCIUM 9.7 mg/dL (8.4-10.5); GFR NON-AFRICAN AMERICAN > 60
[2018-09-10 16:12] LABS: TROPONIN I < 0.01 ng/mL
[2018-09-10 16:31] LABS: PH,URINE 6.5 (4.7-8.0); URINE APPEARANCE CLEAR (CLEAR); URINE BILIRUBIN NEGATIVE (NEGATIVE); URINE BLOOD TRACE-INTACT (NEGATIVE); URINE COLOR YELLOW (YELLOW); URINE GLUCOSE (UA) >=1000 mg/dL (NEGATIVE); URINE LEUKOCYTE ESTERASE NEGATIVE Leu/uL (NEGATIVE); URINE PROTEIN 100 mg/dL (<30 mg/dL); URINE UROBILINOGEN 0.2 E.U./dL (<1 E.U./dL)
[2018-09-10 16:33] LABS: URINE RBC 0 - 2 /hpf (0-2); URINE WBC NEGATIVE /hpf (0-6)
[2018-09-10] MEDS ORDERED: Iohexol 240 (50 ml) ONE (17:35)
--- NOTE | 2018-09-10 18:39 | CARD ---
APPROVED REPORT Date of service: 09/10/2018 EKG Measurement Heart [id number] WI [id number] <Conclusion> Normal sinus rhythm Left axis deviation Left anterior fascicular block Poor R wave progression Abnormal ECG
[2018-09-10 19:16] VITALS: BP 142/84; PULSE 83; TEMP 98.5; O2SAT 95
--- NOTE | 2018-09-11 08:37 | CT ---
Date of service: 09/10/2018 PROCEDURE: CT Abdomen and Pelvis with contrast HISTORY: abdominal pain COMPARISON: None. TECHNIQUE: Contrast dose: Radiation dose: Total exam DLP = 1177.05 mGy-cm. This CT exam was performed using one or more of the following dose reduction techniques: Automated exposure control, adjustment of the mA and/or kV according to patient size, and/or use of iterative reconstruction technique. FINDINGS: LOWER THORAX: Glass density infiltrates in the right lower lobe. LIVER: Fatty liver. GALLBLADDER AND BILE DUCTS: Unremarkable. PANCREAS: Unremarkable. No gross lesion or ductal dilatation. SPLEEN: Unremarkable. ADRENALS: Unremarkable. No mass. KIDNEYS AND URETERS: Unremarkable. No hydronephrosis. No solid mass. VASCULATURE: Unremarkable. No aortic aneurysm. No aortic atherosclerotic calcification or mural plaque present. BOWEL: Mild colonic diverticulosis.. No obstruction. No gross mural thickening. APPENDIX: Normal appendix. PERITONEUM: Unremarkable. No free fluid. No free air. LYMPH NODES: Unremarkable. No enlarged lymph nodes. BLADDER: Unremarkable. REPRODUCTIVE: Mild prostate enlargement. BONES: No acute fracture. OTHER FINDINGS: None. IMPRESSION: Ground-glass density infiltrate in the right lower lobe. No acute pathology in the abdomen.
== END 2018-09-10 20:51 | disposition home or self-care (01) ==
LOC: ED 12:58
DX: J18.9 Pneumonia, unspecified organism (principal); N40.0 Benign prostatic hyperplasia without lower urinary tract symptoms; E11.40 Type 2 diabetes mellitus with diabetic neuropathy, unspecified
CPT/HCPCS: 71045; 74177; 80053; 81001; 82550; 82948; 83615; 83735; 84484; 85025; 87086; 93005; 96374; 99285; J1885; Q9966; Q9967